=== PATIENT | female | born 1950 | race Caucasian/White ===

== ENCOUNTER 2016-08-04 04:43 | Observation (INO) ==
[2016-08-04] MEDS ORDERED: Ondansetron 4 MG/2 ML VIAL IVP ONE (04:52)
--- NOTE | 2016-08-04 04:53 | Emergency Department Note ---
Disposition Clinical Impression: Joint pain Disposition: Still a Patient Referrals: Fabien Franco MD [Primary Care Provider] - General Adult HPI - General Chief complaint: ED General Medical Stated complaint: Joint pain Time Seen by Provider: 08/04/16 04:50 Nursing Notes Reviewed: Yes Vital Signs Reviewed: Yes - History of Present Illness HPI Narrative: Mrs. Lucas, a 66-year-old female, presents from home by EMS for evaluation of lower extremity joint pain. She has a history of rheumatoid arthritis managed by rheumatology. Last , she had a first and final tx was last - using a combination of rheumatoid and chemotherapeutic medication. After this , her symptoms have been worse than typical and progressive. She awoke this morning and was unable to move her lower extremities secondary to lower extremity joint pain. She typically ambulates without assistance. Prior to arrival, patient attempted self-care with Tylenol and 40 mg prednisone. Her pain is associated with nausea and vomiting; nonbloody, nonbilious. Family at bedside is able to provide additional history. Patient has been nauseaus with vomiting for the past day or so (non bloody, non bilious). She has associated weakness. 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 - Related Data Home Medications Medication Instructions Recorded Confirmed Hydroxychloroquine [Plaquenuil] 200 mg PO DAILY 04/20/16 04/20/16 Magic Mouthwash 5 ml PO TID 04/20/16 04/20/16 Oxygen 1 each .ROUTE AD 04/20/16 04/20/16 Theophylline Anhydrous [Theodur] 300 mg PO BID 04/20/16 04/20/16 Trazodone HCl 1 - 2 tab PO HS PRN 04/20/16 04/20/16 Previous Rx's Medication Instructions Recorded Acyclovir [Zovirax] 800 mg PO 5XD #35 tablet 04/20/16 Magic Mouthwash 5 - 10 ml PO Q4H PRN #200 ml 04/20/16 Allergies Allergy/AdvReac Type Severity Reaction Status Date / Time clarithromycin AdvReac Muscle Pain Verified 02/24/15 11:14 codeine AdvReac Muscle Pain Verified 02/24/15 11:14 Penicillins [PCN] AdvReac Hives Verified 02/24/15 11:14 pregabalin AdvReac Muscle Pain Verified 02/24/15 11:14 Sulfa (Sulfonamide AdvReac Nausea Verified 02/24/15 11:14 Antibiotics) sulfamethoxazole AdvReac Nausea Verified 02/24/15 11:14 [From Bactrim] trimethoprim [From Bactrim] AdvReac Nausea Verified 02/24/15 11:14 All systems ED: reviewed and negative except as stated. Past Medical History - Past Medical History Medical history: Reports: aortic aneurysm, arthritis, COPD, GERD, seizures, thyroid disease, syncope Surgical history: Reports: appendectomy, breast surgery, hysterectomy Psychiatric history: Reports: no psych history - Social History Smoking Status: Never smoker Smokeless Tobacco Status: No Alcohol use: Reports: none Drug use: Reports: none Physical Exam Vital Signs Reviewed General: Patient is alert, oriented, and in mild distress-patient appears to be in pain. HEENT: No facial asymmetry. Head is normocephalic and atraumatic. PERRLA. Oral mucosa moist. Trachea midline. Cardiovascular: Heart regular rate and rhythm without clicks, rubs, gallops, or murmurs. No JVD. PMI nondisplaced. Respiratory: Symmetric chest rise with good respiratory effort. Bilateral breath sounds are clear without wheezing, crackles, or rhonchi. Abdomen: Bowel sounds present normoactive x-4 quadrants. Abdomen is soft, nondistended, and nontender. No organomegaly noted. Musculoskeletal: Bilateral rheumatoid nodules in patient's hands, wrists, shoulders, knees, and feet. Not erythematous or warm. Pain with passive movement of bilateral knees. Neuro: GCS 15. Sensation light touch intact in lower extremities. Psych: Patient's affect is appropriate for situation. Course Course Narrative: 2 presents for pain and nausea control. She recently had chemotherapy with rheumatoid medication after which her rheumatoid joint pain has progressively worsened. She was unable to move her legs while in bed this morning secondary to pain. She denies any other systemic symptoms. No traumas or falls. Notification this time for imaging. Will manage patient symptomatically and reevaluate. Patient is not improved with Zofran. Pain control with Dilaudid given her allergy to codeine. She does have leukocytosis. Urinalysis is pending. Patient signed out to the daytime. Urinalysis pending. Anticipate discharge home with follow to rheumatology for continued chronic pain control. Vital Signs Temperature 98.4 F 08/04/16 04:48 Pulse Rate 91 08/04/16 04:48 Respiratory Rate 18 08/04/16 04:48 Blood Pressure 136/77 08/04/16 04:48 O2 Sat by Pulse Oximetry 100 08/04/16 04:48 Temperature 0 F L 08/04/16 06:21 Pulse Rate 80 08/04/16 06:21 Respiratory Rate 18 08/04/16 06:21 Blood Pressure 134/70 08/04/16 06:21 O2 Sat by Pulse Oximetry 94 08/04/16 06:21 Oxygen Delivery Oxygen Delivery Room Air Medical Decision Making - Medical Records Medical records reviewed: Yes I reviewed the patient's medical records. - Lab Data Lab results reviewed: Yes I reviewed the patient's lab results. Result diagrams: 08/04/16 05:48 08/04/16 05:48 Lab Results 08/04/16 08/04/16 08/04/16 Range/Units 05:48 05:48 05:48 WBC 12.1 H (4.3-11.1) K/mcL RBC 3.91 (3.82-4.97) M/mcL Hgb 11.1 L (11.5-15.4) g/dL Hct 33.9 L (35.3-44.9) % MCV 86.7 (83.0-100.0) fL MCH 28.4 (28.0-33.3) pg MCHC 32.7 (31.6-35.5) g/dL RDW 13.1 (11.5-14.5) % Plt Count 246 (140-400) K/mcL MPV 10.1 (9.4-12.4) fL Seg Neutrophils % 82.0 % Band Neutrophils % 8.0 H (0-4) % Lymphocytes % 4.0 % Monocytes % 6.0 % Neutrophils # 10.9 H (1.6-8.9) K/mcL Lymphocytes # 0.5 L (0.6-4.6) K/mcL Monocytes # 0.7 (0.0-1.3) K/mcL Platelet Estimate Normal (Normal) Sodium 137 (136-145) mEq/L Potassium 3.6 (3.5-4.5) mEq/L Chloride 105 (98-109) mEq/L Carbon Dioxide 25 (19-29) mEq/L BUN 6 L (7-20) mg/dL Creatinine 0.60 (0.57-1.11) mg/dL Est GFR ( Amer) > 60 (> 60) Est GFR (Non-Af Amer) > 60 (> 60) BUN/Creatinine Ratio 10 (6-26) Glucose 123 H (70-99) mg/dL Calculated Osmolality 283 (280-300) Calcium 9.3 (8.6-10.8) mg/dL Creatine Kinase 77 (29-168) Units/L Troponin I 0.01 (0-0.03) ng/mL - Radiology Data Radiology results reviewed: Yes I reviewed the patient's radiology results. Chest X-Ray 08/04/16 05:19 IMPRESSION: 1. No acute cardiopulmonary disease. D/ / Clifford Alvarado MD / Clifford Alvarado MD Interpreting Provider: Clifford Alvarado MD - EKG Data EKG #1 EKG attestation: Yes I reviewed and interpreted this EKG. EKG results narrative: EKG dated 08/04/16 at 05:43 interpreted as sinus rhythm with rate of 78. Normal intervals LA 156, QRS 102, QT/QTC 376/49. Left axis axis. Left anterior fascicular block. Specific ST-T changes. No previous EKG for comparison. Attestation Statement - Attestation Attestation: I, Kvng Fisher, examined this patient and my medical decision-making was reviewed with the CHILD CARE SITTER/PA/Advanced Practice Nurse/Resident Physician. I agree with the documented findings, disposition and treatment plan as described except to the extent set forth below. 66-year-old female presents with multiple concerns or complaints. Family states the patient has been weak, fatigued and vomiting over the past 24 hours. Patient states her main concern was pain to the bilateral knees which started this morning. Patient states she was able to ambulate without difficulty yesterday tear. Today the patient is unable to ambulate secondary to the pain in bilateral knees. Patient reports a subjective fever but has not taken her temperature. On physical exam the patient has tenderness to palpation of the bilateral knees however she has no calf tenderness and she has pulses that are palpable in the bilateral feet. Laboratory evaluation revealed leukocytosis with bandemia however chest x-ray was negative for acute infiltrate. I am currently waiting for urine to evaluate for further sources of infection. It is unlikely that the patient has bilateral septic arthritis however I will add on an ESR and CRP for further evaluation. At this point and pending labs and disposition.
[2016-08-04] MEDS ORDERED: *HR* HYDROmorphone (PF) 1 MG/ML SYRINGE IVP ONE (04:58)
[2016-08-04] MEDS ORDERED: 0.9 % Sodium Chloride 1,000 ML IVC ONE (05:20)
[2016-08-04 05:54] LABS: Hematocrit 33.9 % (35.3-44.9); Hemoglobin 11.1 g/dL (11.5-15.4); Lymphocytes # 0.5 K/mcL (0.6-4.6); Mean Corpuscular HGB Conc 32.7 g/dL (31.6-35.5); Mean Corpuscular Hemoglobin 28.4 pg (28.0-33.3); Mean Corpuscular Volume 86.7 fL (83.0-100.0); Mean Platelet Volume 10.1 fL (9.4-12.4); Platelet Count 246 K/mcL (140-400); Red Blood Count 3.91 M/mcL (3.82-4.97); Red Cell Distribution Width 13.1 % (11.5-14.5)
[2016-08-04 06:08] LABS: BUN/Creatinine Ratio 10 (6-26); Blood Urea Nitrogen 6 mg/dL (7-20); Calcium 9.3 mg/dL (8.6-10.8); Carbon Dioxide 25 mEq/L (19-29); Chloride 105 mEq/L (98-109); Glucose 123 mg/dL (70-99); Osmolality,Calculated 283 (280-300); Potassium 3.6 mEq/L (3.5-4.5); Sodium 137 mEq/L (136-145); eGFR For African Americans > 60 (> 60); eGFR For Non-African Americans > 60 (> 60)
[2016-08-04 06:11] LABS: Monocytes # 0.7 K/mcL (0.0-1.3); Neutrophils # 10.9 K/mcL (1.6-8.9); Platelet Estimate Normal (Normal)
[2016-08-04] MEDS ORDERED: *HR* HYDROmorphone 2 MG/ML SYRINGE IVP ONE (06:12)
[2016-08-04 06:29] LABS: Creatine Kinase 77 Units/L (29-168)
[2016-08-04 07:10] LABS: Bilirubin,Urine Negative (Negative); Blood,Urine Negative (Negative); Clarity,Urine Clear (Clear); Color,Urine Yellow (Yellow); Glucose,Urine (UA) Normal (Normal); Ketones,Urine Negative (Negative); Leukocyte Esterase,Urine Trace (Negative); Nitrite,Urine Negative (Negative); PH,Urine 7.5 pH Units (5.0-8.0); Protein,Urine Negative (Neg-Trace); Specific Gravity,Urine 1.013 (1.010-1.025); Urobilinogen,Urine Normal (Normal)
[2016-08-04 07:12] LABS: Bacteria,Urine None Seen per hpf (None-Few); Hyaline Casts,Urine None Seen per lpf (None-Few); RBC,Urine 0-3 per hpf (0-3); Squamous Epithelial Cell,Urine Moderate per lpf (None-Few); WBC,Urine 0-3 per hpf (0-3)
--- NOTE | 2016-08-04 08:16 | Emergency Department Note ---
Disposition Clinical Impression: Gait instability, Rheumatoid arthritis flare Joint pain Qualifiers: Joint pain location: knee Laterality: bilateral Qualified Code(s): M25.561 - Pain in right knee Disposition: Admitted As Inpatient Condition: Fair Referrals: Fabien Franco MD [Primary Care Provider] - Forms: Work/School Release, ED Satisfaction Letter Time of Disposition: 08:15 General Adult HPI - General Chief complaint: ED General Medical Stated complaint: Joint pain Time Seen by Provider: 08/04/16 04:50 Source: EMS Limitations: physical limitation, age - History of Present Illness Pain Scale: 10 - Related Data Home Medications Medication Instructions Recorded Confirmed Hydroxychloroquine [Plaquenuil] 300 mg PO DAILY 04/20/16 08/04/16 Oxygen 2 l NS HS 04/20/16 08/04/16 Theophylline Anhydrous [Theodur] 300 mg PO BID 04/20/16 08/04/16 Albuterol Neb [Proventil Neb] 2.5 mg IH TID PRN 08/04/16 08/04/16 Albuterol Sulfate [Ventolin Hfa] 2 puff IH Q4H PRN 08/04/16 08/04/16 Aspirin [Lo-Dose Aspirin EC] 81 mg PO DAILY 08/04/16 08/04/16 Cholecalciferol (D-3) [Vitamin D] 2,000 unit PO DAILY 08/04/16 08/04/16 Diclofenac Sodium [Voltaren] 1 appl TP QID PRN 08/04/16 08/04/16 Ergocalciferol (VITAMIN D2) 50,000 unit PO QWEEK 08/04/16 08/04/16 [Vitamin D2] Fluticasone Propionate Nasal 1 spray NS DAILY 08/04/16 08/04/16 [Flonase] Gabapentin [Neurontin] 800 mg PO TID 08/04/16 08/04/16 Ibandronate Sodium [Boniva] 150 mg PO QMONTH 08/04/16 08/04/16 InFLIXimab [Remicade] 100 mg IV Q8W 08/04/16 08/04/16 LevETIRAcetam [Keppra] 1,000 mg PO BID 08/04/16 08/04/16 Levothyroxine [Synthroid] 75 mcg PO 0630 08/04/16 08/04/16 Mometasone/Formoterol [Dulera 100 2 puff IH BID 08/04/16 08/04/16 Mcg/5 Mcg Inhaler] Pantoprazole Sodium [Protonix] 40 mg PO DAILY 08/04/16 08/04/16 Pravastatin Sodium 10 mg PO DAILY 08/04/16 08/04/16 PredniSONE [Deltasone] 20 mg PO AD 08/04/16 08/04/16 Primidone [Mysoline] 250 mg PO Q8HR 08/04/16 08/04/16 Sertraline [Zoloft] 100 mg PO DAILY 08/04/16 08/04/16 Tiotropium [Spiriva] 1 cap IH DAILY 08/04/16 08/04/16 Zafirlukast [Accolate] 20 mg PO DAILY 08/04/16 08/04/16 Allergies Allergy/AdvReac Type Severity Reaction Status Date / Time clarithromycin AdvReac Muscle Pain Verified 02/24/15 11:14 codeine AdvReac Muscle Pain Verified 02/24/15 11:14 Penicillins [PCN] AdvReac Hives Verified 02/24/15 11:14 pregabalin AdvReac Muscle Pain Verified 02/24/15 11:14 Sulfa (Sulfonamide AdvReac Nausea Verified 02/24/15 11:14 Antibiotics) sulfamethoxazole AdvReac Nausea Verified 02/24/15 11:14 [From Bactrim] trimethoprim [From Bactrim] AdvReac Nausea Verified 02/24/15 11:14 Past Medical History - Past Medical History Medical history: Reports: aortic aneurysm, arthritis, COPD, GERD, seizures, thyroid disease, syncope Surgical history: Reports: appendectomy, breast surgery, hysterectomy Psychiatric history: Reports: no psych history - Social History Smoking Status: Never smoker Smokeless Tobacco Status: No Alcohol use: Reports: none Drug use: Reports: none Physical Exam - General Limitations: physical limitation, age General appearance: alert, in no apparent distress Course Course Narrative: There was signed out from Dr. Maya and Dr. Fisher, please see their documentation for history physical review of systems and plan on this patient - Reevaluation(s) Reevaluation #1: 66-year-old female with gait instability and bilateral knee pain, suspect rheumatoid flare however does have a bandemia, I discussed with the hospitalist we will admit the patient due to difficulty walking, gait abnormality knee pain , [facility] accepting. Time: 08:04 Vital Signs Temperature 98.4 F 08/04/16 04:48 Pulse Rate 91 08/04/16 04:48 Respiratory Rate 18 08/04/16 04:48 Blood Pressure 136/77 08/04/16 04:48 O2 Sat by Pulse Oximetry 100 08/04/16 04:48 Temperature 0 F L 08/04/16 06:21 Pulse Rate 80 08/04/16 06:21 Respiratory Rate 18 08/04/16 06:21 Blood Pressure 134/70 08/04/16 06:21 O2 Sat by Pulse Oximetry 94 08/04/16 06:21 Oxygen Delivery Oxygen Delivery Room Air Medical Decision Making - Medical Records Medical records reviewed: Yes I reviewed the patient's medical records. - Lab Data Lab results reviewed: Yes I reviewed the patient's lab results. Result diagrams: 08/04/16 05:48 08/04/16 05:48 Lab Results 08/04/16 08/04/16 08/04/16 Range/Units 05:48 05:48 05:48 WBC 12.1 H (4.3-11.1) K/mcL RBC 3.91 (3.82-4.97) M/mcL Hgb 11.1 L (11.5-15.4) g/dL Hct 33.9 L (35.3-44.9) % MCV 86.7 (83.0-100.0) fL MCH 28.4 (28.0-33.3) pg MCHC 32.7 (31.6-35.5) g/dL RDW 13.1 (11.5-14.5) % Plt Count 246 (140-400) K/mcL MPV 10.1 (9.4-12.4) fL Seg Neutrophils % 82.0 % Band Neutrophils % 8.0 H (0-4) % Lymphocytes % 4.0 % Monocytes % 6.0 % Neutrophils # 10.9 H (1.6-8.9) K/mcL Lymphocytes # 0.5 L (0.6-4.6) K/mcL Monocytes # 0.7 (0.0-1.3) K/mcL Platelet Estimate Normal (Normal) Sodium 137 (136-145) mEq/L Potassium 3.6 (3.5-4.5) mEq/L Chloride 105 (98-109) mEq/L Carbon Dioxide 25 (19-29) mEq/L BUN 6 L (7-20) mg/dL Creatinine 0.60 (0.57-1.11) mg/dL Est GFR ( Amer) > 60 (> 60) Est GFR (Non-Af Amer) > 60 (> 60) BUN/Creatinine Ratio 10 (6-26) Glucose 123 H (70-99) mg/dL Calculated Osmolality 283 (280-300) Calcium 9.3 (8.6-10.8) mg/dL Creatine Kinase 77 (29-168) Units/L Troponin I 0.01 (0-0.03) ng/mL Urine Color (Yellow) Urine Clarity (Clear) Urine pH (5.0-8.0) pH Units Ur Specific [place] (1.010-1.025) Urine Protein (Neg-Trace) mg/dL Urine Glucose (UA) (Normal) mg/dL Urine Ketones (Negative) mg/dL Urine Blood (Negative) Urine Nitrite (Negative) Urine Bilirubin (Negative) Urine Urobilinogen (Normal) mg/dL Ur Leukocyte Esterase (Negative) Urine Microscopic RBC (0-3) per hpf Urine Microscopic WBC (0-3) per hpf Ur Squamous Epith Cells (None-Few) per lpf Urine Bacteria (None-Few) per hpf Hyaline Casts (None-Few) per lpf Ur Culture Indicated? (NO) 08/04/16 Range/Units 07:00 WBC (4.3-11.1) K/mcL RBC (3.82-4.97) M/mcL Hgb (11.5-15.4) g/dL Hct (35.3-44.9) % MCV (83.0-100.0) fL MCH (28.0-33.3) pg MCHC (31.6-35.5) g/dL RDW (11.5-14.5) % Plt Count (140-400) K/mcL MPV (9.4-12.4) fL Seg Neutrophils % % Band Neutrophils % (0-4) % Lymphocytes % % Monocytes % % Neutrophils # (1.6-8.9) K/mcL Lymphocytes # (0.6-4.6) K/mcL Monocytes # (0.0-1.3) K/mcL Platelet Estimate (Normal) Sodium (136-145) mEq/L Potassium (3.5-4.5) mEq/L Chloride (98-109) mEq/L Carbon Dioxide (19-29) mEq/L BUN (7-20) mg/dL Creatinine (0.57-1.11) mg/dL Est GFR ( Amer) (> 60) Est GFR (Non-Af Amer) (> 60) BUN/Creatinine Ratio (6-26) Glucose (70-99) mg/dL Calculated Osmolality (280-300) Calcium (8.6-10.8) mg/dL Creatine Kinase (29-168) Units/L Troponin I (0-0.03) ng/mL Urine Color Yellow (Yellow) Urine Clarity Clear (Clear) Urine pH 7.5 (5.0-8.0) pH Units Ur Specific [place] 1.013 (1.010-1.025) Urine Protein Negative (Neg-Trace) mg/dL Urine Glucose (UA) Normal (Normal) mg/dL Urine Ketones Negative (Negative) mg/dL Urine Blood Negative (Negative) Urine Nitrite Negative (Negative) Urine Bilirubin Negative (Negative) Urine Urobilinogen Normal (Normal) mg/dL Ur Leukocyte Esterase Trace H (Negative) Urine Microscopic RBC 0-3 (0-3) per hpf Urine Microscopic WBC 0-3 (0-3) per hpf Ur Squamous Epith Cells Moderate H (None-Few) per lpf Urine Bacteria None Seen (None-Few) per hpf Hyaline Casts None Seen (None-Few) per lpf Ur Culture Indicated? YES A (NO) - Radiology Data Radiology results reviewed: Yes I reviewed the patient's radiology results. Chest X-Ray 08/04/16 05:19 IMPRESSION: 1. No acute cardiopulmonary disease. D/ / Clifford Alvarado MD / Clifford Alvarado MD Interpreting Provider: Clifford Alvarado MD Knee X-Ray 08/04/16 07:38 IMPRESSION: 1. No acute findings in the knees. 2. Predominately mild tricompartmental osteoarthritic changes with moderate involvement of the left lateral compartment. 3. Small bilateral suprapatellar effusions, larger on the left. 4. Bony demineralization. 5. Minimal to mild diffuse subcutaneous edema. D/ / Shahzad Ramsey MD / Shahzad Ramsey MD Interpreting Provider: Shahzad Ramsey MD Attestation Statement - Attestation Attestation: I examined this patient and my medical decision-making was reviewed with the MANAGER CAR/PA/Advanced Practice Nurse/Resident Physician. I agree with the documented findings, disposition and treatment plan as described except to the extent set forth below. Patient signed out pending urinalysis and disposition. Urinalysis does not show any signs of infection. Patient saw having a significant amount of pain following multiple doses of IV pain medication. Unclear the source of her bandemia. Blood cultures were drawn and sent. Admitted to medicine.
[2016-08-04] MEDS ORDERED: Naloxone 0.4 MG/ML INJ IVP PRN (09:18)
[2016-08-04] MEDS ORDERED: *HR* Morphine 2 MG/ML SYRINGE IVP PRN (09:18)
--- NOTE | 2016-08-04 09:18 | Internal Med History&Physical ---
Date of Encounter: 08/04/16 Time of Encounter: 09:17 Assessment and Plan (1) Rheumatoid arthritis flare Current visit: Yes Status: Acute On wrists, knees Will start prednisone 60mg daily and PPI [facility]-Dr Connor consulted on the phone Continue plaquenil ESR 22, CRP elevated Gentle hydration PT/OT evaluation (2) UTI (urinary tract infection) Current visit: Yes Status: Acute Symptomatic, with LE on UA Patient complained of dysuria, frequency Allergic to Penicillin, Started on Levaquin, follow urine cultures, de-escalate prn Qualifiers: Urinary tract infection type: acute cystitis Hematuria presence: without hematuria Qualified Code(s): N30.00 - Acute cystitis without hematuria (3) Seizures Current visit: Yes Status: Chronic On Keppra at home, resume same (4) Sjogrens syndrome Current visit: Yes Status: Chronic Resume home meds Qualifiers: Sjogren's organ involvement: unspecified organ involvement Qualified Code(s ): M35.00 - Sicca syndrome, unspecified (5) COPD (chronic obstructive pulmonary disease) Current visit: Yes Status: Chronic Not in exacerbation at this time Resume home Spiriva, Albuterol, Advair Qualifiers: COPD type: unspecified COPD Qualified Code(s): J44.9 - Chronic obstructive pulmonary disease, unspecified (6) Hypothyroidism Current visit: Yes Status: Chronic Resume synthroid, check TSH Qualifiers: Hypothyroidism type: unspecified Qualified Code(s): E03.9 - Hypothyroidism , unspecified (7) Leukocytosis Current visit: Yes Status: Acute Possibly from steroids, also may be from UTI Continue to monitor Qualifiers: Leukocytosis type: unspecified Qualified Code(s): D72.829 - Elevated white blood cell count, unspecified Internal Medicine - H&P: HPI Chief complaint: I can't walk Admitted From: Home Plans for Post Hospital Care: Home History of present illness: Ms. Lucas is a 66 year old female with COPD on intermittent/nocturnal home O2, RA , Sjogren's syndorme, Seizures, Neuropathy, hypothyroidism She was recently started on infliximab infusions, first does 07/28/16, she reports generalized body pains and fatigue since the infusion, no fever or chills, no rash However, yesterday she developed intense pain in her knees and she could not ambulate. She presented to the ER with complains of same. She denies history of trauma to any of the joints, denies fever or chills, but complains of warmt, redness, pain as well as swelling of her right and left wrists and shoulders. She denies sick contacts, recent travels No chest or cardiac symptoms No GI symptoms She also endorsed dysuria and frequency, no hematuria She also has a history of seizures, no recent seizures In the ER, she was given dilaudid with some relief of her pain, work up revealed UA with Squamous cells, and LE, no nitrites, CXR unremarkable, CBC with leukocytosis with left shift, Hb and PLT WNL. Chem unremarkable. ESR elevated at 22, CRP elevated at 30, KNee Xray shows bone demineralization, as well as bilateral suprapatellar effusion, L>R, subcutaneous edema Past Med Surg Social Fam HX - Past Medical History Medical history: aortic aneurysm, arthritis, COPD, GERD, seizures, thyroid disease, syncope Psychiatric history: no psych history - Past Surgical History Surgical History: appendectomy, breast surgery, hysterectomy - Social History Smoking Status: Never smoker Smokeless Tobacco Status: No Alcohol use: none Drug use: none Internal Medicine - H&P: Meds Hydroxychloroquine [Plaquenuil] 300 mg PO DAILY 04/20/16 [History] Oxygen 2 l NS HS 04/20/16 [History] Theophylline Anhydrous [Theodur] 300 mg PO BID 04/20/16 [History] Albuterol Neb [Proventil Neb] 2.5 mg IH TID PRN 08/04/16 [History] Albuterol Sulfate [Ventolin Hfa] 2 puff IH Q4H PRN 08/04/16 [History] Aspirin [Lo-Dose Aspirin EC] 81 mg PO DAILY 08/04/16 [History] Cholecalciferol (D-3) [Vitamin D] 2,000 unit PO DAILY 08/04/16 [History] Diclofenac Sodium [Voltaren] 1 appl TP QID PRN 08/04/16 [History] Ergocalciferol (VITAMIN D2) [Vitamin D2] 50,000 unit PO QWEEK 08/04/16 [History] Fluticasone Propionate Nasal [Flonase] 1 spray NS DAILY 08/04/16 [History] Gabapentin [Neurontin] 800 mg PO TID 08/04/16 [History] Ibandronate Sodium [Boniva] 150 mg PO QMONTH 08/04/16 [History] InFLIXimab [Remicade] 100 mg IV Q8W 08/04/16 [History] LevETIRAcetam [Keppra] 1,000 mg PO BID 08/04/16 [History] Levothyroxine [Synthroid] 75 mcg PO 0630 08/04/16 [History] Mometasone/Formoterol [Dulera 100 Mcg/5 Mcg Inhaler] 2 puff IH BID 08/04/16 [ History] Pantoprazole Sodium [Protonix] 40 mg PO DAILY 08/04/16 [History] Pravastatin Sodium 10 mg PO DAILY 08/04/16 [History] PredniSONE [Deltasone] 20 mg PO AD 08/04/16 [History] Primidone [Mysoline] 250 mg PO Q8HR 08/04/16 [History] Sertraline [Zoloft] 100 mg PO DAILY 08/04/16 [History] Tiotropium [Spiriva] 1 cap IH DAILY 08/04/16 [History] Zafirlukast [Accolate] 20 mg PO DAILY 08/04/16 [History] Allergies clarithromycin Adverse Reaction (Verified 02/24/15 11:14) Muscle Pain codeine Adverse Reaction (Verified 02/24/15 11:14) Muscle Pain Penicillins [PCN] Adverse Reaction (Verified 02/24/15 11:14) Hives pregabalin Adverse Reaction (Verified 02/24/15 11:14) Muscle Pain Sulfa (Sulfonamide Antibiotics) Adverse Reaction (Verified 02/24/15 11:14) Nausea sulfamethoxazole [From Bactrim] Adverse Reaction (Verified 02/24/15 11:14) Nausea trimethoprim [From Bactrim] Adverse Reaction (Verified 02/24/15 11:14) Nausea All Systems PM: A 10-system review of systems was performed and is negative for pertinent findings except as documented above in the HPI. - Constitutional Constitutional: chills - EENT Eyes: no change in vision, no discharge, no pain, no photophobia - Cardiovascular Cardiovascular ROS IM: no chest pain, no diaphoresis, no dyspnea, no lightheadedness, no palpitations, no syncope - Respiratory Respiratory: no cough, no dyspnea, no wheezing, no excessive phlegm production - Gastrointestinal Gastrointestinal: no abdominal pain, no diarrhea, no hematemesis, no hematochezia, no melena, no nausea, no vomiting - Genitourinary Genitourinary: dysuria, urinary frequency, no difficulty voiding - Musculoskeletal Musculoskeletal ROS IM: as per HPI - Integumentary Integumentary IM: no rash - Neurological Neurological ROS: no confusion, no convulsions, no focal weakness, no numbness, no tingling, no tremor(s) - Hematologic/Lymphatic Hematologic/Lymphatic: no easy bruising - Constitutional Vitals: Temp Pulse Resp BP Pulse Ox 0 F L 80 18 128/71 94 08/04/16 08:35 08/04/16 06:21 08/04/16 08:35 08/04/16 08:35 08/04/16 06:21 General appearance: Present: mild distress, A&O X 3, pleasant - Head Head exam: Present: atraumatic, normocephalic - Eye Eye exam: Present: PERRL, conjuntiva pink, sclera anicteric Pupils: Present: PERRL - ENT ENT exam: Present: mucous membranes dry - Neck Neck exam general surgery: Present: normal inspection - Respiratory Respiratory exam: Present: CTAB. Absent: chest wall tenderness, rales, rhonchi , wheezes - Cardiovascular Cardiovascular exam: Present: RRR, +S1, +S2. Absent: JVD, systolic murmur - GI/Abdominal GI/Abdominal exam: Present: normal bowel sounds, soft, no peritoneal signs. Absent: tenderness - Extremities Exam Extremities exam: Present: joint swelling, tenderness, warm, radial pulses palpable and symetrical. Absent: cyanotic, full ROM Additional comments: Bilateral wrists swelling and redness, differential warmth, synovitis of both wrists [place] neck deformities, both thumbs Bilateral knees diffuse warmth and redness, bllotable effusion over the patella , ROM not assessed due to intense pain No pedal edema Extremities well perfused - Neurological Exam Neurological exam: Present: alert, CN II-XII intact, oriented X3, no focal deficits. Absent: pronater drift, facial droop, speech deficit - Skin Skin exam: Present: dry Internal Med - H&P Results - Labs CBC & Chem 7: 08/04/16 05:48 08/04/16 05:48
[2016-08-04] MEDS ORDERED: Albuterol 2.5 MG/3 ML NEBULIZER IH PRN (09:20)
[2016-08-04] MEDS ORDERED: predniSONE 20 MG TABLET PO ONE (09:20)
[2016-08-04 09:45] LABS: C-Reactive Protein 30 mg/L (Less than 5)
--- NOTE | 2016-08-04 10:05 | Rheumatology Consult Note ---
<Jossy Xie - Last Filed: 08/04/16 13:31> Date of Encounter: 08/04/16 Time of Encounter: 09:15 Rheumatology Assess and Plan (1) Polyarthritis Current Visit: Yes Status: Acute - Affecting bilateral wrist and knee joints. - Likely related to recent Remicade administration. - Given affecting multiple joints at same time, doubt infectious arthritis but cannot be completely ruled out. - Left knee arthrocentesis was done today with about 20 mL of cloudy synovial fluid obtained and sent for further studies including cell count, crystal study , gram stain and culture. - Given the acute onset, will also check Parvovirus IgM. - Continue steroid and antibiotic at this time and further de-escalate based on result of synovial fluid studies. (2) Rheumatoid arthritis Current Visit: Yes Status: Chronic - History of rheumatoid arthritis on Plaquenil and recently started on Remicade. - Continue Plaquenil and prednisone. - Will avoid Remicade in the future. Qualifiers: Rheumatoid arthritis location: unspecified site Rheumatoid factor presence : with rheumatoid factor Qualified Code(s): M05.9 - Rheumatoid arthritis with rheumatoid factor, unspecified (3) Sjogrens syndrome Current Visit: Yes Status: Chronic - Patient can use artificial tear or Biotene for dry eye or dry mouth. Qualifiers: Sjogren's organ involvement: unspecified organ involvement Qualified Code(s ): M35.00 - Sicca syndrome, unspecified Rheumatology HPI Consult date: 08/04/16 Requesting physician: Curt Maier Consult reason: Concern of rheumatoid arthritis flare Chief complaint: Worsening bilateral wrist and knee joint swelling and pain History of present illness: Ms. Lucas is a 66 year old female with PMH of rheumatoid arthritis on Plaquenil and Remicade (one dose on 07/27/16), Sjogrens syndrome, osteoarthritis, osteoporosis, hypothyroidism, emphysema. Patient presented with complaint of worsening bilateral wrist and knee joint swelling and pain resulting in difficulty ambulation. Patient was noted to have leukocytosis (12.1) with bandemia (8%) in ED. Patient was admitted on 08/04/16 for possible rheumatoid arthritis flare-up and rheumatology is consulted regarding further evaluation and management. Patient was seen and examined this morning. Patient reports symptoms started after Remicade infusion last week but got significantly worsen last night. It affect bilateral thumb, wrist and knee with swelling, pain and warm to touch. She also developed some skin itchiness and scratch. Patient saw Dr. Berg in rheumatology clinic on 08/02 and was started on prednisone, which patient did take but feels not helping. Patient also reports having subjective fever, chills and one episode of vomiting last night. Patient reports having some genitourinary irritation but thinks it's from wiping tissue she used as she states no pain on urination. Patient has baseline shortness of breath from her COPD and baseline bilateral extremity numbness/tingling from peripheral neuropathy but reports no recent change. Patient denies rash, vision change, eye redness/inflammation, sore throat, oral ulcer/sore, focal weakness, productive cough, chest pain, abdominal pain, diarrhea, hematochezia, melena, hematuria, rash, easily bleeding/bruise. Patient has history of allergy to multiple medications. Patient denies known history of gout. Patient denies recent trauma or injury. Past Med Surg Social Fam HX - Past Medical History Medical history: aortic aneurysm, arthritis (Rheumatoid arthritis, osteoarthritis), COPD, GERD, seizures, thyroid disease, syncope, other (Sjogren) Psychiatric history: no psych history - Past Surgical History Surgical History: appendectomy, breast surgery, hysterectomy - Social History Smoking Status: Never smoker Smokeless Tobacco Status: No Alcohol use: none Drug use: none Medications and Allergies Hydroxychloroquine [Plaquenuil] 300 mg PO DAILY 04/20/16 [History] Oxygen 2 l NS HS 04/20/16 [History] Theophylline Anhydrous [Theodur] 300 mg PO BID 04/20/16 [History] Albuterol Neb [Proventil Neb] 2.5 mg IH TID PRN 08/04/16 [History] Albuterol Sulfate [Ventolin Hfa] 2 puff IH Q4H PRN 08/04/16 [History] Aspirin [Lo-Dose Aspirin EC] 81 mg PO DAILY 08/04/16 [History] Cholecalciferol (D-3) [Vitamin D] 2,000 unit PO DAILY 08/04/16 [History] Diclofenac Sodium [Voltaren] 1 appl TP QID PRN 08/04/16 [History] Ergocalciferol (VITAMIN D2) [Vitamin D2] 50,000 unit PO QWEEK 08/04/16 [History] Fluticasone Propionate Nasal [Flonase] 1 spray NS DAILY 08/04/16 [History] Gabapentin [Neurontin] 800 mg PO TID 08/04/16 [History] Ibandronate Sodium [Boniva] 150 mg PO QMONTH 08/04/16 [History] InFLIXimab [Remicade] 100 mg IV Q8W 08/04/16 [History] LevETIRAcetam [Keppra] 1,000 mg PO BID 08/04/16 [History] Levothyroxine [Synthroid] 75 mcg PO 0630 08/04/16 [History] Mometasone/Formoterol [Dulera 100 Mcg/5 Mcg Inhaler] 2 puff IH BID 08/04/16 [ History] Pantoprazole Sodium [Protonix] 40 mg PO DAILY 08/04/16 [History] Pravastatin Sodium 10 mg PO DAILY 08/04/16 [History] PredniSONE [Deltasone] 20 mg PO AD 08/04/16 [History] Primidone [Mysoline] 250 mg PO Q8HR 08/04/16 [History] Sertraline [Zoloft] 100 mg PO DAILY 08/04/16 [History] Tiotropium [Spiriva] 1 cap IH DAILY 08/04/16 [History] Zafirlukast [Accolate] 20 mg PO DAILY 08/04/16 [History] Allergies clarithromycin Adverse Reaction (Verified 02/24/15 11:14) Muscle Pain codeine Adverse Reaction (Verified 02/24/15 11:14) Muscle Pain Penicillins [PCN] Adverse Reaction (Verified 02/24/15 11:14) Hives pregabalin Adverse Reaction (Verified 02/24/15 11:14) Muscle Pain Sulfa (Sulfonamide Antibiotics) Adverse Reaction (Verified 02/24/15 11:14) Nausea sulfamethoxazole [From Bactrim] Adverse Reaction (Verified 02/24/15 11:14) Nausea trimethoprim [From Bactrim] Adverse Reaction (Verified 02/24/15 11:14) Nausea All Systems Review: A 10-system review of systems was performed and is negative for pertinent findings except as documented above in the HPI. Review of Systems: Patient denies productive cough, chest pain, abdominal pain, rash, diarrhea, hematochezia, melena, hematuria, rash, easily bleeding/bruise. Rheumatology Exam Vital Signs, Last 4 Hours Temp Pulse Resp BP Pulse Ox 08/04/16 09:49 91 19 143/96 95 08/04/16 08:35 0 F L 18 128/71 Exam: Gen: A&Ox3, cooperative, mild distress from joint pain. HEENT: AT/NC, EOMI, PERRL, no eye redness noted, nare patent, oral mucosa dry, neck supple, no significant cervical lymphoadenopathy noted. CV: RRR, no murmurs appreciated. Lungs: CTAB, no wheezes, rhonchi or rales. Abd: soft, non-tender, positive bowel sounds. Neuro: CN II-XII grossly intact, strength 5/5 symmetrical, no focal deficit noted. Skin: Some scratch kaminksi noted on right knee and right whitaker. Extremities: Bilateral wrist: swelling, erythema, warm to touch. Bilateral knee: swelling, erythema, warm to touch. Palpable suprapatellar effusion. Per Dr. Berg, those joints are significantly worsen compared to patient's visit with him on 08/02. Rheumatology Results 08/04/16 05:48 08/04/16 05:48 All other labs normal. Consult Discharge Plan - Plan Referrals: Fabien Franco MD [Primary Care Provider] - <Neymar Berg W - Last Filed: 08/04/16 17:04> Date of Encounter: 08/04/16 Rheumatology HPI History of present illness: Ms. Lucas is a 66 year old female All Systems Review: A 10-system review of systems was performed and is negative for pertinent findings except as documented above in the HPI. Rheumatology Exam Vital Signs, Last 4 Hours Temp Pulse Resp BP Pulse Ox 08/04/16 15:49 97.9 F 90 18 141/72 96 Rheumatology Results 08/04/16 05:48 08/04/16 05:48 All other labs normal. - Attending Attestation I examined this patient and my medical decision making was reviewed with the resident physician. I agree with the documented findings, disposition and treatment as described with these exceptions. Jazlyn Lucas is a 66-year-old female with a past medical history of Sjogren's syndrome, rheumatoid arthritis, hypothyroidism, hyperlipidemia, osteoporosis, COPD who presents to the hospital with an acute onset of polyarthritis. Remicade given last week; has had progressively worsening arthralgias increasing to arthritis. Leukocytosis, neutrophilia noted. CMP and UA reviewed. Xrays reviewed Exam consistent for diffuse synovitis and joint effusion. Arthrocentesis for cultures, crytals. Given acute nature after Remicade, will need to consider drug/TNF induced lupus ; add ISABELA, dsDNA, complements. Less likely serum sickness given lack of rash/ fevers. less likely reactive arthritis and I would not suspect a sudden rheumatoid flare like this. Check Parvo IgM. Await cultures/synovital fluid analysis. Agree with prednisone 60 mg; would discharge on 40 mg if expectantly improving and I will set up for follow-up office visit. I will be gone till Monday. I did call Dr. Maier to speak with her regarding this case.
[2016-08-04] MEDS: Aspirin Enteric Coated 81 MG Tablet PO SCH (10:38)
[2016-08-04] MEDS: Cholecalciferol (D-3) 1,000 UNIT TABLET PO SCH (10:39)
[2016-08-04] MEDS: Levofloxacin 750 MG/150 ML 750 MG/150 ML BAG IVPB SCH (10:39)
[2016-08-04] MEDS: levETIRAcetam 250 MG TABLET PO SCH ×2 (10:39→20:30)
[2016-08-04] MEDS: 0.9 % Sodium Chloride 1,000 ML IVC SCH (10:40)
--- NOTE | 2016-08-04 12:17 | Procedure Note ---
<Jossy Xie - Last Filed: 08/04/16 14:22> Date of procedure: 08/04/16 Pre-op diagnosis: Polyarthritis Post-op diagnosis: same Procedure: Left knee arthrocentesis Informed consent was obtained and patient signed the consent form. The left knee was prepped with chlorhexidine. Needle was inserted with "no touch" technique. About 20 mL of cloudy synovial fluid was obtained and sent to lab for further studies including cell count, crystal study, gram stain and culture. Patient tolerates the procedure well. This procedure was done by resident physician Jossy Xie under direct supervision of rheumatology attending Dr. Berg. Estimated blood loss (cc): 1 Condition: stable <Neymar Berg - Last Filed: 08/04/16 16:54> Procedure: I examined this patient and my medical decision making was reviewed with the resident physician. I agree with the documented findings, disposition and treatment as described with these exceptions. I was present for the entirety of this procedure. There were no complications during or directly after the procedure.
[2016-08-04] MEDS: *HR* HYDROcodone/Acet 5/325 mg TABLET PO PRN (12:26)
[2016-08-04] MEDS: Ondansetron 4 MG/2 ML VIAL IVP PRN (12:47)
--- NOTE | 2016-08-04 14:03 | Electrocardiograph Report ---
[place] [facility] Test Date: 2016-08-04 Pat Name: Jazlyn Lucas Department: 103 Room: 2NE23 Gender: F Opener Tender: [facility] : 1950 Requested By: Nelson Maya Order Number: [id number] Reading MD: Erich Mcmillan MD Measurements Intervals [place] Rate: 78 P: 56 [place]: 156 QRS: -23 QRSD: 102 T: 29 QT: 376 QTc: 409 Interpretive Statements SINUS RHYTHM BORDERLINE LEFT AXIS DEVIATION NONSPECIFIC T-WAVE ABNORMALITY Electronically Signed On 08-04-2016 14:01:55 EDT by Erich Mcmillan MD
[2016-08-04] MEDS: Acetaminophen 325 MG TABLET PO PRN (14:33)
[2016-08-04 14:41] LABS: Appearance of Body Fluid Cloudy (Clear); Volume of Body Fluid 18 mL
[2016-08-04] MEDS: Gabapentin 400 MG CAPSULE PO SCH ×2 (15:29→20:30)
[2016-08-04 16:16] LABS: Source of Body Fluid Left knee joint aspi
[2016-08-04] MEDS: Ipratropium/Albuterol Neb 3 ML IH SCH (19:43)
[2016-08-05] MEDS: 0.9 % Sodium Chloride 1,000 ML IVC SCH (00:13)
[2016-08-05] MEDS: *HR* HYDROcodone/Acet 5/325 mg TABLET PO PRN ×3 (00:17→22:11)
[2016-08-05 04:15] LABS: Basophils % 0.1 %; Hematocrit 30.1 % (35.3-44.9); Immature Granulocytes % 0.6 % (0-4); Lymphocytes % 6.5 %; Mean Corpuscular HGB Conc 33.6 g/dL (31.6-35.5); Mean Corpuscular Hemoglobin 29.3 pg (28.0-33.3); Mean Corpuscular Volume 87.2 fL (83.0-100.0); Mean Platelet Volume 10.5 fL (9.4-12.4); Monocytes % 10.6 %; Platelet Count 213 K/mcL (140-400); Red Blood Count 3.45 M/mcL (3.82-4.97); Red Cell Distribution Width 13.6 % (11.5-14.5); Segmented Neutrophils % 82.2 %
[2016-08-05 04:25] LABS: Hemoglobin 10.1 g/dL (11.5-15.4); Monocytes # 1.6 K/mcL (0.0-1.3)
[2016-08-05 04:35] LABS: BUN/Creatinine Ratio 17 (6-26); Blood Urea Nitrogen 9 mg/dL (7-20); Carbon Dioxide 24 mEq/L (19-29); Chloride 103 mEq/L (98-109); Glucose 114 mg/dL (70-99); Osmolality,Calculated 276 (280-300); Potassium 3.1 mEq/L (3.5-4.5); Sodium 133 mEq/L (136-145); eGFR For African Americans > 60 (> 60); eGFR For Non-African Americans > 60 (> 60)
[2016-08-05 04:41] LABS: Platelet Estimate Normal (Normal)
[2016-08-05 04:42] LABS: Reactive Lymphocytes Present (Not Present)
[2016-08-05 04:51] LABS: Thyroid Stimulating Hormone 0.477 mcIU/mL (0.350-4.840)
[2016-08-05] MEDS: Tiotropium 18 MCG inhalation IH SCH (08:29)
[2016-08-05] MEDS: Cholecalciferol (D-3) 1,000 UNIT TABLET PO SCH (08:33)
[2016-08-05] MEDS: predniSONE 20 MG TABLET PO SCH (08:34)
[2016-08-05] MEDS: levETIRAcetam 250 MG TABLET PO SCH ×2 (08:34→22:11)
[2016-08-05] MEDS: Gabapentin 400 MG CAPSULE PO SCH ×3 (08:35→22:12)
[2016-08-05] MEDS: Aspirin Enteric Coated 81 MG Tablet PO SCH (08:35)
[2016-08-05] MEDS: Levofloxacin 750 MG/150 ML 750 MG/150 ML BAG IVPB SCH (08:36)
[2016-08-05] MEDS: Fluticasone Propionate Nasal 50 MCG/SPRAY BOTTLE NS SCH (08:37)
[2016-08-05] MEDS: Ipratropium/Albuterol Neb 3 ML IH SCH ×2 (09:37→20:21)
[2016-08-05] MEDS: Ondansetron 4 MG/2 ML VIAL IVP PRN ×2 (12:54→22:12)
--- NOTE | 2016-08-05 17:14 | Internal Med Progress Note ---
Date of Encounter: 08/06/16 Time of Encounter: 17:13 - Assessment and plan (1) Polyarthritis Current Visit: Yes Status: Acute Assessment and plan: admitted with flare of of RA worsening wrist and knee joint pain noted that left knee arthrocentesis done Gram stain and culture negative so far WBC count around 49K in joint fluid patient is feeling little better plan will continue abx for now await for cultures cont steroids (2) Rheumatoid arthritis flare Current Visit: Yes Status: Acute Assessment and plan: recently started on DMARDs Rheumatology on board (3) Hypothyroidism Current Visit: Yes Status: Chronic Assessment and plan: stable Qualifiers: Hypothyroidism type: unspecified Qualified Code(s): E03.9 - Hypothyroidism , unspecified - Subjective Interval history: seen and examined. chart reviewed. patient still complains that she has knee joint pain. denies chest pain or SOB - Constitutional Vitals: Temp Pulse Resp BP Pulse Ox 98.5 F 90 15 109/66 97 08/05/16 15:55 08/05/16 15:55 08/05/16 15:55 08/05/16 15:55 08/05/16 15:55 General appearance: Present: mild distress, A&O X 3, pleasant - Head Head exam: Present: atraumatic, normocephalic - Eye Eye exam: Present: PERRL, conjuntiva pink, sclera anicteric Pupils: Present: PERRL - Neck Neck exam general surgery: Present: supple, trachea midline. Absent: lymphadenopathy - Respiratory Respiratory exam: Present: CTAB. Absent: accessory muscle use, rales, rhonchi, wheezes - Cardiovascular Cardiovascular exam: Present: RRR, +S1, +S2. Absent: diastolic murmur, gallop, rubs, systolic murmur - GI/Abdominal GI/Abdominal exam: Present: normal bowel sounds, soft, no peritoneal signs. Absent: distended, tenderness - Extremities Exam Extremities exam: Present: warm, radial pulses palpable and symetrical. Absent : calf tenderness, cyanotic, pedal edema - Neurological Exam Neurological exam: Present: CN II-XII intact, oriented X3, no focal deficits. Absent: pronater drift, facial droop, speech deficit - Skin Skin exam: Present: dry, intact Internal Medicine: Result - Labs CBC & Chem 7: 08/06/16 08:53 08/06/16 08:53 Labs: Short CBC 08/05/16 Range/Units 03:46 WBC 14.6 H (4.3-11.1) K/mcL Hgb 10.1 L (11.5-15.4) g/dL Hct 30.1 L (35.3-44.9) % Plt Count 213 (140-400) K/mcL Neutrophils # 12.0 H (1.6-8.9) K/mcL BMP 08/05/16 03:46 Sodium 133 L Potassium 3.1 L Chloride 103 Carbon Dioxide 24 BUN 9 Creatinine 0.52 L Glucose 114 H Calcium 9.0 Consult Discharge Plan - Plan Referrals: Neymar Berg DO [Partnered Physician] - 08/16/16 4:00 pm Fabien Franco MD [Primary Care Provider] -
[2016-08-06] MEDS: Ipratropium/Albuterol Neb 3 ML IH SCH ×2 (07:36→20:36)
[2016-08-06] MEDS: Tiotropium 18 MCG inhalation IH SCH (07:56)
[2016-08-06] MEDS: Levofloxacin 750 MG/150 ML 750 MG/150 ML BAG IVPB SCH (08:21)
[2016-08-06] MEDS: Aspirin Enteric Coated 81 MG Tablet PO SCH (08:22)
[2016-08-06] MEDS: Gabapentin 400 MG CAPSULE PO SCH ×3 (08:22→22:56)
[2016-08-06] MEDS: levETIRAcetam 250 MG TABLET PO SCH ×2 (08:23→22:57)
[2016-08-06] MEDS: Cholecalciferol (D-3) 1,000 UNIT TABLET PO SCH (08:23)
[2016-08-06] MEDS: predniSONE 20 MG TABLET PO SCH (08:23)
[2016-08-06] MEDS: Fluticasone Propionate Nasal 50 MCG/SPRAY BOTTLE NS SCH (08:24)
[2016-08-06 09:40] LABS: Alanine Aminotransferase 6 Units/L (0-55); Albumin 2.6 g/dL (3.5-5.0); Albumin/Globulin Ratio 0.8 (1.1-2.2); Alkaline Phosphatase 54 Units/L (38-126); Aspartate Amino Transferase 18 Units/L (5-34); BUN/Creatinine Ratio 16 (6-26); Bilirubin,Total 0.8 mg/dL (0.2-1.2); Blood Urea Nitrogen 9 mg/dL (7-20); Calcium 8.9 mg/dL (8.6-10.8); Carbon Dioxide 24 mEq/L (19-29); Chloride 102 mEq/L (98-109); Globulin 3.2 g/dL (2.4-3.5); Glucose 121 mg/dL (70-99); Osmolality,Calculated 276 (280-300); Potassium 2.8 mEq/L (3.5-4.5); Sodium 133 mEq/L (136-145); Total Protein 5.8 g/dL (6.0-8.3); eGFR For African Americans > 60 (> 60); eGFR For Non-African Americans > 60 (> 60)
[2016-08-06 09:46] LABS: Basophils % 0.1 %; Hematocrit 30.7 % (35.3-44.9); Hemoglobin 9.9 g/dL (11.5-15.4); Immature Granulocytes % 0.8 % (0-4); Lymphocytes # 0.6 K/mcL (0.6-4.6); Lymphocytes % 5.6 %; Mean Corpuscular HGB Conc 32.2 g/dL (31.6-35.5); Mean Platelet Volume 10.7 fL (9.4-12.4); Monocytes # 0.5 K/mcL (0.0-1.3); Monocytes % 4.3 %; Platelet Count 231 K/mcL (140-400); Red Blood Count 3.53 M/mcL (3.82-4.97); Red Cell Distribution Width 13.6 % (11.5-14.5); Segmented Neutrophils % 89.2 %
--- NOTE | 2016-08-06 15:25 | Internal Med Progress Note ---
Date of Encounter: 08/06/16 Time of Encounter: 15:22 - Assessment and plan (1) Polyarthritis Current Visit: Yes Status: Acute Assessment and plan: admitted with flare of of RA worsening wrist and knee joint pain noted that left knee arthrocentesis done Gram stain and culture negative so far WBC count around 49K in joint fluid patient is feeling little better plan will continue abx for now await for cultures cont steroids 08/06/2016 Joint fluid WBC count: 49,320 Segmented cells: More than 90% Gram stain: No organisms seen. Joint fluid culture: 48 hours, no bacterial growth Patient feels much better as compared to the day of arrival. Plan: Will continue present antibiotics at this time Await for rheumatology review Patient is keen to go to rehabilitation. Await for community mental health social worker input Spoke to infectious disease. Case discussed at length. Unlikely septic joint. recommended nitrofurantoin for possible UTI. (2) Rheumatoid arthritis flare Current Visit: Yes Status: Acute Assessment and plan: recently started on DMARDs Rheumatology on board (3) Hypothyroidism Current Visit: Yes Status: Chronic Assessment and plan: stable Qualifiers: Hypothyroidism type: unspecified Qualified Code(s): E03.9 - Hypothyroidism , unspecified - Subjective Interval history: seen and examined. chart reviewed. patient still complains that she has knee joint pain. denies chest pain or SOB 08/06/2016 Patient seen and examined. Chart reviewed. Patient is comfortably lying in a bed. She has occasional joint pains. Patient denies chest pain, shortness of breath, abdominal pain or nausea - Constitutional Vitals: Temp Pulse Resp BP Pulse Ox 98.6 F 98 16 131/76 97 08/06/16 12:00 08/06/16 12:00 08/06/16 12:00 08/06/16 12:08/06/16 12:00 General appearance: Present: mild distress, A&O X 3, pleasant - Head Head exam: Present: atraumatic, normocephalic - Eye Eye exam: Present: PERRL, conjuntiva pink, sclera anicteric Pupils: Present: PERRL - Neck Neck exam general surgery: Present: supple, trachea midline. Absent: lymphadenopathy - Respiratory Respiratory exam: Present: CTAB. Absent: accessory muscle use, rales, rhonchi, wheezes - Cardiovascular Cardiovascular exam: Present: RRR, +S1, +S2. Absent: diastolic murmur, gallop, rubs, systolic murmur - GI/Abdominal GI/Abdominal exam: Present: normal bowel sounds, soft, no peritoneal signs. Absent: distended, tenderness - Extremities Exam Extremities exam: Present: warm, radial pulses palpable and symetrical. Absent : calf tenderness, cyanotic, pedal edema Additional comments: She has occasional joint pain - Neurological Exam Neurological exam: Present: CN II-XII intact, oriented X3, no focal deficits. Absent: pronater drift, facial droop, speech deficit - Skin Skin exam: Present: dry, intact Internal Medicine: Result - Labs CBC & Chem 7: 08/06/16 08:53 08/06/16 08:53 Labs: Short CBC 08/06/16 Range/Units 08:53 WBC 11.2 H (4.3-11.1) K/mcL Hgb 9.9 L (11.5-15.4) g/dL Hct 30.7 L (35.3-44.9) % Plt Count 231 (140-400) K/mcL Neutrophils # 10.0 H (1.6-8.9) K/mcL BMP 08/06/16 08:53 Sodium 133 L Potassium 2.8 L Chloride 102 Carbon Dioxide 24 BUN 9 Creatinine 0.56 L Glucose 121 H Calcium 8.9 Liver Function 08/06/16 Range/Units 08:53 Total Bilirubin 0.8 (0.2-1.2) mg/dL AST 18 (5-34) Units/L ALT 6 (0-55) Units/L Alkaline Phosphatase 54 (38-126) Units/L Albumin 2.6 L (3.5-5.0) g/dL Consult Discharge Plan - Plan Referrals: Neymar Berg DO [Partnered Physician] - 08/16/16 4:00 pm Fabien Franco MD [Primary Care Provider] -
[2016-08-06] MEDS: Acetaminophen 325 MG TABLET PO PRN (23:01)
[2016-08-07 04:31] LABS: Basophils % 0.1 %; Eosinophils % 0.1 %; Hematocrit 28.3 % (35.3-44.9); Hemoglobin 9.2 g/dL (11.5-15.4); Immature Granulocytes % 0.6 % (0-4); Lymphocytes % 9.3 %; Mean Corpuscular HGB Conc 32.5 g/dL (31.6-35.5); Mean Corpuscular Hemoglobin 28.5 pg (28.0-33.3); Mean Corpuscular Volume 87.6 fL (83.0-100.0); Mean Platelet Volume 10.8 fL (9.4-12.4); Monocytes % 9.3 %; Neutrophils # 8.6 K/mcL (1.6-8.9); Platelet Count 243 K/mcL (140-400); Red Blood Count 3.23 M/mcL (3.82-4.97); Red Cell Distribution Width 13.4 % (11.5-14.5); Segmented Neutrophils % 80.6 %
[2016-08-07 04:32] LABS: Alanine Aminotransferase 7 Units/L (0-55); Albumin 2.4 g/dL (3.5-5.0); Albumin/Globulin Ratio 0.8 (1.1-2.2); Alkaline Phosphatase 51 Units/L (38-126); Aspartate Amino Transferase 20 Units/L (5-34); BUN/Creatinine Ratio 17 (6-26); Bilirubin,Total 0.6 mg/dL (0.2-1.2); Blood Urea Nitrogen 8 mg/dL (7-20); Calcium 8.9 mg/dL (8.6-10.8); Carbon Dioxide 23 mEq/L (19-29); Chloride 104 mEq/L (98-109); Globulin 3.2 g/dL (2.4-3.5); Glucose 90 mg/dL (70-99); Osmolality,Calculated 276 (280-300); Sodium 134 mEq/L (136-145); Total Protein 5.6 g/dL (6.0-8.3); eGFR For African Americans > 60 (> 60); eGFR For Non-African Americans > 60 (> 60)
[2016-08-07] MEDS: Ipratropium/Albuterol Neb 3 ML IH SCH ×2 (07:51→21:22)
[2016-08-07] MEDS: Tiotropium 18 MCG inhalation IH SCH (08:03)
[2016-08-07] MEDS: Gabapentin 400 MG CAPSULE PO SCH ×3 (08:27→21:10)
[2016-08-07] MEDS: Aspirin Enteric Coated 81 MG Tablet PO SCH (08:28)
[2016-08-07] MEDS: levETIRAcetam 250 MG TABLET PO SCH ×2 (08:28→21:09)
[2016-08-07] MEDS: predniSONE 20 MG TABLET PO SCH (08:29)
[2016-08-07] MEDS: Cholecalciferol (D-3) 1,000 UNIT TABLET PO SCH (08:29)
[2016-08-07] MEDS: Fluticasone Propionate Nasal 50 MCG/SPRAY BOTTLE NS SCH (08:30)
--- NOTE | 2016-08-07 14:26 | Internal Med Progress Note ---
Date of Encounter: 08/07/16 Time of Encounter: 14:23 - Assessment and plan (1) Polyarthritis Current Visit: Yes Status: Acute Assessment and plan: admitted with flare of of RA worsening wrist and knee joint pain noted that left knee arthrocentesis done Gram stain and culture negative so far WBC count around 49K in joint fluid patient is feeling little better plan will continue abx for now await for cultures cont steroids 08/06/2016 Joint fluid WBC count: 49,320 Segmented cells: More than 90% Gram stain: No organisms seen. Joint fluid culture: 48 hours, no bacterial growth Patient feels much better as compared to the day of arrival. Plan: Will continue present antibiotics at this time Await for rheumatology review Patient is keen to go to rehabilitation. Await for bilingual social worker input Spoke to infectious disease. Case discussed at length. Unlikely septic joint. recommended nitrofurantoin for possible UTI. 08/07/2016 Patient complains of persistent aches in her lower extremity joints. Patient feels that her joint fluid is back and feels very uncomfortable in bilateral lower extremity. I have discussed this case with Dr. De Los Santos He does not think that this is septic arthritis. Awaiting for rheumatology review for tomorrow. (2) Rheumatoid arthritis flare Current Visit: Yes Status: Acute Assessment and plan: recently started on DMARDs Rheumatology on board (3) Hypothyroidism Current Visit: Yes Status: Chronic Assessment and plan: stable Qualifiers: Hypothyroidism type: unspecified Qualified Code(s): E03.9 - Hypothyroidism , unspecified - Subjective Interval history: seen and examined. chart reviewed. patient still complains that she has knee joint pain. denies chest pain or SOB 08/06/2016 Patient seen and examined. Chart reviewed. Patient is comfortably lying in a bed. She has occasional joint pains. Patient denies chest pain, shortness of breath, abdominal pain or nausea 08/07/2016 Patient seen and examined. Chart reviewed. Agent is complaining of multiple joint pains. Patient feels that her joint is reaccumalated with with the fluid. - Constitutional Vitals: Temp Pulse Resp BP Pulse Ox 98.4 F 82 16 136/70 97 08/07/16 11:56 08/07/16 11:56 08/07/16 11:56 08/07/16 11:56 08/07/16 11:56 General appearance: Present: mild distress, A&O X 3, pleasant - Head Head exam: Present: atraumatic, normocephalic - Eye Eye exam: Present: PERRL, conjuntiva pink, sclera anicteric Pupils: Present: PERRL - Neck Neck exam general surgery: Present: supple, trachea midline. Absent: lymphadenopathy - Respiratory Respiratory exam: Present: CTAB. Absent: accessory muscle use, rales, rhonchi, wheezes - Cardiovascular Cardiovascular exam: Present: RRR, +S1, +S2. Absent: diastolic murmur, gallop, rubs, systolic murmur - GI/Abdominal GI/Abdominal exam: Present: normal bowel sounds, soft, no peritoneal signs. Absent: distended, tenderness - Extremities Exam Extremities exam: Present: warm, radial pulses palpable and symetrical. Absent : calf tenderness, cyanotic, pedal edema - Neurological Exam Neurological exam: Present: CN II-XII intact, oriented X3, no focal deficits. Absent: pronater drift, facial droop, speech deficit - Skin Skin exam: Present: dry, intact Internal Medicine: Result - Labs CBC & Chem 7: 08/07/16 03:55 08/07/16 03:55 Labs: Short CBC 08/07/16 Range/Units 03:55 WBC 10.7 (4.3-11.1) K/mcL Hgb 9.2 L (11.5-15.4) g/dL Hct 28.3 L (35.3-44.9) % Plt Count 243 (140-400) K/mcL Neutrophils # 8.6 (1.6-8.9) K/mcL BMP 08/07/16 03:55 Sodium 134 L Potassium 3.0 L Chloride 104 Carbon Dioxide 23 BUN 8 Creatinine 0.48 L Glucose 90 Calcium 8.9 Liver Function 08/07/16 Range/Units 03:55 Total Bilirubin 0.6 (0.2-1.2) mg/dL AST 20 (5-34) Units/L ALT 7 (0-55) Units/L Alkaline Phosphatase 51 (38-126) Units/L Albumin 2.4 L (3.5-5.0) g/dL Consult Discharge Plan - Plan Referrals: Neymar Berg DO [Partnered Physician] - 08/16/16 4:00 pm Fabien Franco MD [Primary Care Provider] -
[2016-08-08] MEDS: *HR* HYDROcodone/Acet 5/325 mg TABLET PO PRN (02:39)
[2016-08-08 04:17] LABS: Basophils % 0.1 %; Eosinophils % 0.6 %; Hematocrit 28.2 % (35.3-44.9); Hemoglobin 9.2 g/dL (11.5-15.4); Immature Granulocytes % 0.4 % (0-4); Lymphocytes # 1.5 K/mcL (0.6-4.6); Lymphocytes % 20.4 %; Mean Corpuscular HGB Conc 32.6 g/dL (31.6-35.5); Mean Corpuscular Hemoglobin 27.9 pg (28.0-33.3); Mean Corpuscular Volume 85.5 fL (83.0-100.0); Mean Platelet Volume 10.1 fL (9.4-12.4); Monocytes # 0.7 K/mcL (0.0-1.3); Monocytes % 9.5 %; Platelet Count 260 K/mcL (140-400); Red Cell Distribution Width 13.3 % (11.5-14.5)
[2016-08-08 04:40] LABS: Alanine Aminotransferase 14 Units/L (0-55); Albumin 2.4 g/dL (3.5-5.0); Albumin/Globulin Ratio 0.8 (1.1-2.2); Alkaline Phosphatase 49 Units/L (38-126); Aspartate Amino Transferase 32 Units/L (5-34); BUN/Creatinine Ratio 20 (6-26); Bilirubin,Total 0.3 mg/dL (0.2-1.2); Blood Urea Nitrogen 9 mg/dL (7-20); Calcium 8.5 mg/dL (8.6-10.8); Carbon Dioxide 25 mEq/L (19-29); Chloride 103 mEq/L (98-109); Glucose 93 mg/dL (70-99); Osmolality,Calculated 276 (280-300); Potassium 2.9 mEq/L (3.5-4.5); Sodium 134 mEq/L (136-145); Total Protein 5.4 g/dL (6.0-8.3); eGFR For African Americans > 60 (> 60); eGFR For Non-African Americans > 60 (> 60)
[2016-08-08] MEDS: Tiotropium 18 MCG inhalation IH SCH (07:42)
[2016-08-08] MEDS: Ipratropium/Albuterol Neb 3 ML IH SCH (07:43)
--- NOTE | 2016-08-08 07:46 | Rheumatology Progress Note ---
Date of Encounter: 08/08/16 Time of Encounter: 07:30 Rheumatology Assess and Plan (1) Polyarthritis Current Visit: Yes Status: Acute Improving polyarthritis; differential includes RA flare, Remicade side effect TNF induced lupus labs pending Continue prednisone; decrease to 40 mg x 3 days then decrease till 20 mg Follow-up in outpatient clinic (2) Rheumatoid arthritis involving multiple sites with positive rheumatoid factor Current Visit: Yes Status: Acute Prednisone taper Continue hydroxychloroquine Outpatient follow-up (3) On prednisone therapy Current Visit: Yes Status: Acute - Subjective Interval history: Patient is seen and examined. She reports over the weekend, she has continued to improve with oral prednisone. She is up ambulating and has noticed a significant decrease in her overall swelling. Today she reports minimal pain. She is having no fevers, no rashes, no oral lesions, no shortness of breath and no chest pain. Vitals reviewed. ROS General - No fevers/chills ENT - No oral ulcerations Heart - No chest pain/on palpitations Lungs - No cough, no shortness of breath, no pleuritic chest pain Skin - No rashes MSK - No painful or swollen joints Exam Vital Signs, Last 4 Hours Temp Pulse Resp BP Pulse Ox 08/08/16 04:00 98.0 F 76 16 121/69 98 Exam: General - Alert and oriented, no acute distress Psych - Affect full, oriented to person, place and time Eyes - Conjunctiva clear Lungs - Anterior exam clear to auscultation Heart - S1S2 RRR without murmurs or extra heart sounds MSK - Full active ROM, no synovitis/tenderness in upper extremities, left knee with small effusion but able to take through ROM Skin - No visible rashes, no cutaneous ulcerations Objective Data 08/08/16 03:55 08/08/16 03:55 All other labs normal. Consult Discharge Plan - Plan Referrals: Neymar Berg DO [Partnered Physician] - 08/16/16 4:00 pm Fabien Franco MD [Primary Care Provider] -
[2016-08-08 07:57] VITALS: BP 137/86
[2016-08-08] MEDS: Cholecalciferol (D-3) 1,000 UNIT TABLET PO SCH (08:22)
[2016-08-08] MEDS: Aspirin Enteric Coated 81 MG Tablet PO SCH (08:23)
[2016-08-08] MEDS: Gabapentin 400 MG CAPSULE PO SCH ×2 (08:23→15:07)
[2016-08-08] MEDS: predniSONE 20 MG TABLET PO SCH (08:23)
[2016-08-08] MEDS: levETIRAcetam 250 MG TABLET PO SCH (08:23)
[2016-08-08] MEDS: Fluticasone Propionate Nasal 50 MCG/SPRAY BOTTLE NS SCH (08:24)
[2016-08-08] MEDS ORDERED: Potassium Chloride Elixir 20 MEQ/15 ML UDC PO SCH (09:00)
[2016-08-08 10:29] LABS: ANA IgG by ELISA NONE DETECTED (None Detected); Complement Component 3 82 mg/dL (88-201)
[2016-08-08 10:30] LABS: Complement Component 4 2 mg/dL (10-40)
--- NOTE | 2016-08-08 11:29 | Discharge Summary ---
<Shahzad Gómez - Last Filed: 08/08/16 15:23> Date of Encounter: 08/08/16 Time of Encounter: 10:00 - Discharge Diagnosis (1) Polyarthritis Priority: Primary Status: Acute (2) Rheumatoid arthritis flare Priority: Primary Status: Acute (3) Hypothyroidism Priority: Secondary Status: Chronic Qualifiers: Hypothyroidism type: unspecified Qualified Code(s): E03.9 - Hypothyroidism , unspecified (4) UTI (urinary tract infection) Priority: Secondary Status: Resolved Qualifiers: Urinary tract infection type: acute cystitis Hematuria presence: without hematuria Qualified Code(s): N30.00 - Acute cystitis without hematuria (5) Hypokalemia Priority: Secondary Status: Acute Comments: Follow-up with primary care provider within one week - Discharge Medications Prescriptions: predniSONE [PredniSONE] 10 mg PO DAILY #27 tablet Home Medications: Hydroxychloroquine [Plaquenuil] 300 mg PO DAILY 04/20/16 [History] Oxygen 2 l NS HS 04/20/16 [History] Theophylline Anhydrous [Theodur] 300 mg PO BID 04/20/16 [History] Albuterol Neb [Proventil Neb] 2.5 mg IH TID PRN 08/04/16 [History] Albuterol Sulfate [Ventolin Hfa] 2 puff IH Q4H PRN 08/04/16 [History] Aspirin [Lo-Dose Aspirin EC] 81 mg PO DAILY 08/04/16 [History] Cholecalciferol (D-3) [Vitamin D] 2,000 unit PO DAILY 08/04/16 [History] Diclofenac Sodium [Voltaren] 1 appl TP QID PRN 08/04/16 [History] Ergocalciferol (VITAMIN D2) [Vitamin D2] 50,000 unit PO QWEEK 08/04/16 [History] Fluticasone Propionate Nasal [Flonase] 1 spray NS DAILY 08/04/16 [History] Gabapentin [Neurontin] 800 mg PO TID 08/04/16 [History] Ibandronate Sodium [Boniva] 150 mg PO QMONTH 08/04/16 [History] InFLIXimab [Remicade] 100 mg IV Q8W 08/04/16 [History] LevETIRAcetam [Keppra] 1,000 mg PO BID 08/04/16 [History] Levothyroxine [Synthroid] 75 mcg PO 0630 08/04/16 [History] Mometasone/Formoterol [Dulera 100 Mcg/5 Mcg Inhaler] 2 puff IH BID 08/04/16 [ History] Pantoprazole Sodium [Protonix] 40 mg PO DAILY 08/04/16 [History] Pravastatin Sodium 10 mg PO DAILY 08/04/16 [History] PredniSONE [Deltasone] 20 mg PO AD 08/04/16 [History] Primidone [Mysoline] 250 mg PO Q8HR 08/04/16 [History] Sertraline [Zoloft] 100 mg PO DAILY 08/04/16 [History] Tiotropium [Spiriva] 1 cap IH DAILY 08/04/16 [History] Zafirlukast [Accolate] 20 mg PO DAILY 08/04/16 [History] Acetaminophen [Tylenol] 650 mg PO Q6HR PRN #0 tablet 08/08/16 [Rx] predniSONE [PredniSONE] 10 mg PO DAILY #27 tablet 08/08/16 [Rx] Allergies/Adverse Reactions: Allergies clarithromycin Adverse Reaction (Verified 02/24/15 11:14) Muscle Pain codeine Adverse Reaction (Verified 02/24/15 11:14) Muscle Pain Penicillins [PCN] Adverse Reaction (Verified 02/24/15 11:14) Hives pregabalin Adverse Reaction (Verified 02/24/15 11:14) Muscle Pain Sulfa (Sulfonamide Antibiotics) Adverse Reaction (Verified 02/24/15 11:14) Nausea sulfamethoxazole [From Bactrim] Adverse Reaction (Verified 02/24/15 11:14) Nausea trimethoprim [From Bactrim] Adverse Reaction (Verified 02/24/15 11:14) Nausea - Notes to Outpatient Provider Please follow-up on documented hyperkalemia in patient Date of admission: 08/04/16 07:55 Primary care physician: Fabien Franco MD Consults: 08/04/16 10:23 Consult to Occupational Therapy [CONS] Routine Comment: Evaluate, develop and implement POC Reason for Consult: Rheumatoid arthritis, gait instability Consult to Physical Therapy [CONS] Routine Comment: Evaluate, develop and implement POC Reason for Consult: Gait assessment and implementation of aids, discharge disposition 08/04/16 12:19 Consult to Physician [CONS] Stat Consulting Provider: Neymar Berg Reason for Consult: Rheumatoid flare Call Completed: Yes 08/05/16 11:48 Consult to Elementary Educator [CONS] Routine Reason for SW Consult: PT/OT recommeding SNF/rehab. Patient and family agreeable. [facility] 08/06/16 17:09 Consult to Infectious Diseases [CONS] Routine Consulting Provider: Infectious Disease [facility] Reason for Consult: ?septic joint Call Completed: Yes Discharging clinician: Poncho Carey Anticipated date of discharge: 08/08/16 (Pending Mg Results) - Patient Status Disposition: Home, Self-Care Condition: Fair Functional capacity at discharge: independent ambulation Overall status at discharge: patient is back to baseline - Ambulatory Orders Ambulatory Orders: Basic Metabolic Panel [CHEM] Time Frame: 3 Days, Location: any - Discharge Instructions Instructions: Rheumatoid Arthritis (DC) Follow Up With: Shagufta Maldonado DO [Partnered Physician] - 08/15/16 9:30 am Neymar Berg DO [Partnered Physician] - 08/16/16 4:00 pm Forms: ED Satisfaction Letter, Work/School Release Additional Instructions: pcp requsted - Diet and Activity Activity: resume usual activities as tolerated Diet: advance to your usual diet Hospital course: Ms. Lucas is a 66 year old female with PMH of COPD on intermittent home O2, RA, Sjogren's syndrome, seizures, neuropathy, and hypothyroidism who was started recently on infliximab infusions on 07/28/16. She developed intense pains and fatigue since the infusion denied any fevers or chills or rash however she developed an intense pain in her knees such that she could not ambulate. She also experienced pain and swelling in her right and left wrists as well as her shoulders. In the ER she was found to have substantially swollen lower left knee, which was aspirated and the fluid contents was found to have 49,000 white blood cells with 97% neutrophils. Case was discussed with Dr. De LosS antos and it was determined that septic joint was unlikely at this time he recommended a prednisone taper and treatment for possible UTI.Nitrofurantoin was started along with a prednisone taper and the patient showed significant improvement over the course of her stay. Patient reports that she is now however able to ambulate with pain. Her joint swelling has also decreased during her stay here. Rheumatology is recommended that she be discharged and follow up within 1 week. Final sore labs also showed that the patient was hypokalemic at 2.9. Her potassium has been repleted and a basic metabolic panel is recommended within 3 days outpatient, and patient should follow up with primary care on the potassium value. Time spent discussing smoking cessation with patient: 3 to 10 minutes - Time Spent with Patient Total time spent providing and/or coordinating discharge services: Greater than 30 minutes Specific discharge activities: Patient can resume previous activity as tolerated - Constitutional Vitals: Temp Pulse Resp BP Pulse Ox 97.6 F 75 17 137/86 99 08/08/16 07:00 08/08/16 07:00 08/08/16 07:43 08/08/16 07:00 08/08/16 07:43 General appearance: Present: mild distress, A&O X 3, pleasant - Head Head exam: Present: atraumatic, normocephalic - Eye Eye exam: Present: PERRL, sclera anicteric Pupils: Present: PERRL - Neck Neck exam general surgery: Present: supple, trachea midline. Absent: lymphadenopathy - Respiratory Respiratory exam: Present: CTAB. Absent: accessory muscle use, rales, rhonchi, wheezes - Cardiovascular Cardiovascular exam: Present: RRR, +S1, +S2. Absent: diastolic murmur, gallop, rubs, systolic murmur - GI/Abdominal GI/Abdominal exam: Present: normal bowel sounds, soft, no peritoneal signs. Absent: distended, tenderness - Extremities Exam Extremities exam: Present: warm, radial pulses palpable and symetrical. Absent : calf tenderness, cyanotic, pedal edema - Expanded Lower Extremities Exam Upper Leg exam: Present: normal inspection Knee exam: Present: normal inspection Lower Leg exam: Present: normal inspection - Neurological Exam Neurological exam: Present: CN II-XII intact, oriented X3, no focal deficits. Absent: pronater drift, facial droop, speech deficit - Skin Skin exam: Present: dry, intact <Cherry,Poncho P - Last Filed: 08/08/16 17:43> Date of Encounter: 08/08/16 - Discharge Diagnosis (1) Polyarthritis Status: Acute (2) Rheumatoid arthritis flare Status: Acute (3) Hypothyroidism Status: Chronic Qualifiers: Hypothyroidism type: unspecified Qualified Code(s): E03.9 - Hypothyroidism , unspecified Date of admission: 08/04/16 07:55 Primary care physician: Fabien Franco MD Consults: 08/04/16 10:23 Consult to Occupational Therapy [CONS] Routine Comment: Evaluate, develop and implement POC Reason for Consult: Rheumatoid arthritis, gait instability Consult to Physical Therapy [CONS] Routine Comment: Evaluate, develop and implement POC Reason for Consult: Gait assessment and implementation of aids, discharge disposition 08/04/16 12:19 Consult to Physician [CONS] Stat Consulting Provider: Neymar Berg Reason for Consult: Rheumatoid flare Call Completed: Yes 08/05/16 11:48 Consult to Elementary Educator [CONS] Routine Reason for SW Consult: PT/OT recommeding SNF/rehab. Patient and family agreeable. [facility]. 08/06/16 17:09 Consult to Infectious Diseases [CONS] Routine Consulting Provider: Infectious Disease [place] Reason for Consult: ?septic joint Call Completed: Yes Hospital course: Ms. Lucas is a 66 year old female - Time Spent with Patient Total time spent providing and/or coordinating discharge services: - Constitutional Vitals: Temp Pulse Resp BP Pulse Ox 97.6 F 75 17 137/86 99 08/08/16 07:00 08/08/16 07:00 08/08/16 07:43 08/08/16 07:00 08/08/16 07:43 - Attending Attestation I examined this patient and my medical decision-making was reviewed with the PEOP[employer] DEVELOPER/PA/Advanced Practice Nurse/Resident Physician. I agree with the documented findings, disposition and treatment plan as described except to the extent set forth below. Patient will see Dr. De Los Santos sometime this week.
[2016-08-08] MEDS ORDERED: Potassium Chloride Elixir 20 MEQ/15 ML UDC PO ONE (13:00)
[2016-08-08 14:00] LABS: Magnesium 1.8 mg/dL (1.6-2.6)
== END 2016-08-08 16:15 | disposition home or self-care (01) ==
LOC: EMEROO 04:43 → 2NENU 04:43
PROVIDERS: ADMIT Internal Medicine; ATTEND Internal Medicine

== ENCOUNTER 2018-01-24 15:24 | Inpatient (IN) ==
--- NOTE | 2018-01-24 16:09 | Emergency Department Note ---
Disposition Clinical Impression: Contusion of left hip Qualifiers: Encounter type: initial encounter Qualified Code(s): S70.02XA - Contusion of left hip, initial encounter Disposition: Still a Patient Referrals: Fabien Franco MD [Primary Care Provider] - General Adult HPI - General Chief complaint: ED Extremity Injury, Lower Stated complaint: fall Time Seen by Provider: 01/24/18 15:27 Source: EMS Limitations: no limitations Nursing Notes Reviewed: Yes Vital Signs Reviewed: Yes - History of Present Illness HPI Narrative: ED ATTESTATION NOTE: I examined this patient and my medical decision-making was reviewed with the Resident Physician/RCP/PA/Student. I have personally performed a face to face evaluation on this patient & I agree with the documented findings, disposition and treatment plan as described except to the extent set forth below. Patient was seen with emergency medicine resident Dr. Angel Cartwright please see copy of his note for details of this encounter Briefly: 59-year-old female by EMS chemical slip fall right hip pain. There is no shortening or external rotation or deformity. Minor irritability of the right hip and pelvis. No instability to AP and lateral compressive forces she did not strike her head or loss of consciousness is not on blood thinners. Patient getting an AP pelvis bilateral hip films. Disposition pending. Pain Scale: 5 - Related Data Home Medications Medication Instructions Recorded Confirmed Hydroxychloroquine [Plaquenuil] 300 mg PO DAILY 04/20/16 11/21/17 Oxygen 2 l NS HS 04/20/16 11/21/17 Theophylline Anhydrous [Theodur] 300 mg PO BID 04/20/16 11/21/17 Albuterol Neb [Proventil Neb] 2.5 mg IH TID PRN 08/04/16 11/21/17 Albuterol Sulfate [Ventolin Hfa] 2 puff IH Q4H PRN 08/04/16 11/21/17 Aspirin [Lo-Dose Aspirin EC] 81 mg PO DAILY 08/04/16 11/21/17 Cholecalciferol (D-3) [Vitamin D] 2,000 unit PO DAILY 08/04/16 11/21/17 Diclofenac Sodium [Voltaren] 1 appl TP QID PRN 08/04/16 11/21/17 Ergocalciferol (VITAMIN D2) 50,000 unit PO QWEEK 08/04/16 11/21/17 [Vitamin D2] Fluticasone Propionate Nasal 1 spray NS DAILY 08/04/16 11/21/17 [Flonase] Gabapentin [Neurontin] 800 mg PO TID 08/04/16 11/21/17 Ibandronate Sodium [Boniva] 150 mg PO QMONTH 08/04/16 11/21/17 InFLIXimab [Remicade] 100 mg IV Q8W 08/04/16 11/21/17 LevETIRAcetam [Keppra] 1,000 mg PO BID 08/04/16 11/21/17 Levothyroxine [Synthroid] 75 mcg PO 0630 08/04/16 11/21/17 Mometasone/Formoterol [Dulera 100 2 puff IH BID 08/04/16 11/21/17 Mcg/5 Mcg Inhaler] Pantoprazole Sodium [Protonix] 40 mg PO DAILY 08/04/16 11/21/17 Pravastatin Sodium 10 mg PO DAILY 08/04/16 11/21/17 Primidone [Mysoline] 250 mg PO Q8HR 08/04/16 11/21/17 Sertraline [Zoloft] 100 mg PO DAILY 08/04/16 11/21/17 Tiotropium [Spiriva] 1 cap IH DAILY 08/04/16 11/21/17 Zafirlukast [Accolate] 20 mg PO DAILY 08/04/16 11/21/17 Previous Rx's Medication Instructions Recorded Acetaminophen [Tylenol] 650 mg PO Q6HR PRN #0 tablet 08/08/16 levoFLOXacin [Levaquin] 750 mg PO DAILY 7 Days #7 tablet 11/21/17 predniSONE [PredniSONE] 20 mg PO DAILY #18 tablet 11/21/17 Allergies Allergy/AdvReac Type Severity Reaction Status Date / Time clarithromycin AdvReac Muscle Pain Verified 11/21/17 19:16 codeine AdvReac Muscle Pain Verified 11/21/17 19:16 Penicillins [PCN] AdvReac Hives Verified 11/21/17 19:16 pregabalin AdvReac Muscle Pain Verified 11/21/17 19:16 Sulfa (Sulfonamide AdvReac Nausea Verified 11/21/17 19:16 Antibiotics) sulfamethoxazole AdvReac Nausea Verified 11/21/17 19:16 [From Bactrim] trimethoprim [From Bactrim] AdvReac Nausea Verified 11/21/17 19:16 Past Medical History - Past Medical History Medical history: Reports: aortic aneurysm, COPD, RA Surgical history: Reports: appendectomy, breast surgery, hysterectomy Psychiatric history: Reports: no psych history - Social History Smoking Status: Never smoker Smokeless Tobacco Status: No Alcohol use: Reports: none Drug use: Reports: none Physical Exam - General Limitations: no limitations General appearance: alert Course Vital Signs Temperature 97.6 F 01/24/18 15:31 Pulse Rate 65 01/24/18 15:31 Respiratory Rate 18 01/24/18 15:31 Blood Pressure 119/70 01/24/18 15:31 O2 Sat by Pulse Oximetry 99 01/24/18 15:31 Temperature 97.6 F 01/24/18 15:31 Pulse Rate 65 01/24/18 15:31 Respiratory Rate 18 01/24/18 15:31 Blood Pressure 119/70 01/24/18 15:31 O2 Sat by Pulse Oximetry 99 01/24/18 15:31 Oxygen Delivery Oxygen Delivery Room Air
--- NOTE | 2018-01-24 16:28 | Emergency Department Note ---
Disposition Clinical Impression: Fracture of femoral neck, right Qualifiers: Encounter type: initial encounter Fracture type: closed Qualified Code(s): S72.001A - Fracture of unspecified part of neck of right femur, initial encounter for closed fracture Disposition: Admitted As Inpatient Condition: Good Referrals: Fabien Franco MD [Primary Care Provider] - Forms: ED Satisfaction Letter Time of Disposition: 16:38 Lower Extremity Injury HPI - General Chief Complaint: ED Extremity Injury, Lower Stated Complaint: fall Time Seen by Provider: 01/24/18 15:27 Source: patient, EMS Mode of arrival: EMS Limitations: no limitations Nursing Notes Reviewed: Yes Vital Signs Reviewed: Yes - History of Present Illness HPI Narrative: 67-year-old female history of hyperlipidemia and COPD presents to the emergency department via EMS after fall. She is complaining of right hip pain. She was at her friends house when she stepped outside the door to leave and believe she tripped she fell on her right hip striking the concrete. She did fall down a few steps. She denies any loss of consciousness or head injury. Denies any neck pain. Denies alcohol use. Patient required assistance to get up. No prior surgeries to the extremity. Does not take any anticoagulants. She denies any prodromal symptoms prior to the fall such as headache, chest pain or shortness of breath. States this was purely a mechanical fall. - Related Data Home Medications Medication Instructions Recorded Confirmed Hydroxychloroquine [Plaquenuil] 300 mg PO DAILY 04/20/16 11/21/17 Oxygen 2 l NS HS 04/20/16 11/21/17 Theophylline Anhydrous [Theodur] 300 mg PO BID 04/20/16 11/21/17 Albuterol Neb [Proventil Neb] 2.5 mg IH TID PRN 08/04/16 11/21/17 Albuterol Sulfate [Ventolin Hfa] 2 puff IH Q4H PRN 08/04/16 11/21/17 Aspirin [Lo-Dose Aspirin EC] 81 mg PO DAILY 08/04/16 11/21/17 Cholecalciferol (D-3) [Vitamin D] 2,000 unit PO DAILY 08/04/16 11/21/17 Diclofenac Sodium [Voltaren] 1 appl TP QID PRN 08/04/16 11/21/17 Ergocalciferol (VITAMIN D2) 50,000 unit PO QWEEK 08/04/16 11/21/17 [Vitamin D2] Fluticasone Propionate Nasal 1 spray NS DAILY 08/04/16 11/21/17 [Flonase] Gabapentin [Neurontin] 800 mg PO TID 08/04/16 11/21/17 Ibandronate Sodium [Boniva] 150 mg PO QMONTH 08/04/16 11/21/17 InFLIXimab [Remicade] 100 mg IV Q8W 08/04/16 11/21/17 LevETIRAcetam [Keppra] 1,000 mg PO BID 08/04/16 11/21/17 Levothyroxine [Synthroid] 75 mcg PO 0630 08/04/16 11/21/17 Mometasone/Formoterol [Dulera 100 2 puff IH BID 08/04/16 11/21/17 Mcg/5 Mcg Inhaler] Pantoprazole Sodium [Protonix] 40 mg PO DAILY 08/04/16 11/21/17 Pravastatin Sodium 10 mg PO DAILY 08/04/16 11/21/17 Primidone [Mysoline] 250 mg PO Q8HR 08/04/16 11/21/17 Sertraline [Zoloft] 100 mg PO DAILY 08/04/16 11/21/17 Tiotropium [Spiriva] 1 cap IH DAILY 08/04/16 11/21/17 Zafirlukast [Accolate] 20 mg PO DAILY 08/04/16 11/21/17 Previous Rx's Medication Instructions Recorded Acetaminophen [Tylenol] 650 mg PO Q6HR PRN #0 tablet 08/08/16 levoFLOXacin [Levaquin] 750 mg PO DAILY 7 Days #7 tablet 11/21/17 predniSONE [PredniSONE] 20 mg PO DAILY #18 tablet 11/21/17 Allergies Allergy/AdvReac Type Severity Reaction Status Date / Time clarithromycin AdvReac Muscle Pain Verified 11/21/17 19:16 codeine AdvReac Muscle Pain Verified 11/21/17 19:16 Penicillins [PCN] AdvReac Hives Verified 11/21/17 19:16 pregabalin AdvReac Muscle Pain Verified 11/21/17 19:16 Sulfa (Sulfonamide AdvReac Nausea Verified 11/21/17 19:16 Antibiotics) sulfamethoxazole AdvReac Nausea Verified 11/21/17 19:16 [From Bactrim] trimethoprim [From Bactrim] AdvReac Nausea Verified 11/21/17 19:16 All systems ED: reviewed and negative except as stated. Review of Systems: As Per HPI Constitutional: Denies: fever, chills, weakness Cardiovascular: Denies: chest pain Respiratory: Denies: dyspnea Gastrointestinal: Denies: abdominal pain Musculoskeletal: Reports: arthralgia. Denies: back pain, neck pain Integumentary: Denies: rash Neurological: Denies: headache Past Medical History - Past Medical History Attestation: Yes The following information was validated with the patient. Source: patient Medical history: Reports: aortic aneurysm, COPD, RA Surgical history: Reports: appendectomy, breast surgery, hysterectomy Psychiatric history: Reports: no psych history - Social History Smoking Status: Never smoker Smokeless Tobacco Status: No Alcohol use: Reports: none Drug use: Reports: none Physical Exam - General Limitations: no limitations General appearance: alert, in no apparent distress - Head Head exam: atraumatic, normocephalic, normal inspection - Eye Eye exam: Present: normal appearance, PERRL, EOMI - Chest Chest inspection: Present: normal inspection, symmetric chest wall rise - Respiratory Respiratory exam: Present: normal lung sounds bilaterally. Absent: respiratory distress, wheezes - Cardiovascular Cardiovascular exam: Present: regular rate, normal rhythm, normal heart sounds - Abdominal Exam Abdominal exam: Present: soft, Non-Tender, normal bowel sounds. Absent: tenderness, distention, guarding, rebound, rigidity - Expanded Lower Extremity Exam Hip/Pelvis exam: Present: tenderness (Right hip), pelvis stable. Absent: deformity, external rotation, internal rotation, shortening Upper leg exam: Present: normal inspection, full ROM Knee exam: Present: normal inspection, full ROM Lower leg exam: Present: normal inspection, full ROM Ankle exam: Present: normal inspection, full ROM Foot/toe exam: Present: normal inspection, full ROM Neurovascular/Tendon exam: Present: normal capillary refill. Absent: pulse deficit, motor deficit, sensory deficit, tendon deficit - Neurological Exam Neurological exam: Present: alert, oriented X3 - Psychiatric Psychiatric exam: Present: normal affect, normal mood - Skin Skin exam: Present: warm, dry, intact, normal color Course Course Narrative: Patient presents with mechanical fall and pain to the right hip. There is tend erness to the right hip in her right leg is slightly rotated. X-ray the pelvis. No reported head injury. Patient does not take anticoagulants. - Reevaluation(s) Reevaluation #1: X-ray shows acute nondisplaced right femoral neck fracture. She continues to be tender to that region. Neurovascular he intact. Patient will be admitted for further management. Fentanyl for pain. Will check preadmission labs and EKG. - Consultations Consultation #1: Discuss the case and imaging with the on-call orthopedic surgeon Dr. Jade, agree with admission to medicine and will evaluate in the morning. Time: 16:38 Consultation #2: Spoke with on-call hospitalist roseanna Anne to admit for right hip fx. No further orders at this time Time: 17:36 Vital Signs Temperature 97.6 F 01/24/18 15:31 Pulse Rate 65 01/24/18 15:31 Respiratory Rate 18 01/24/18 15:31 Blood Pressure 119/70 01/24/18 15:31 O2 Sat by Pulse Oximetry 99 01/24/18 15:31 Temperature 97.6 F 01/24/18 15:31 Pulse Rate 71 01/24/18 17:09 Respiratory Rate 13 01/24/18 17:09 Blood Pressure 121/76 01/24/18 17:09 O2 Sat by Pulse Oximetry 93 01/24/18 17:09 Oxygen Delivery Oxygen Delivery Room Air Extremity Injury, Lower - MDM Narrative Medical decision making narrative: Patient was discussed with my attending physician who agrees with ED management and final disposition. They independently evaluated the patient. Please refer to their attestation to this encounter for additional information. This note was generated by [employer] voice recognition software and as a result grammatical or spelling errors may occur using this program. - Medical Records Medical records reviewed: Yes I reviewed the patient's medical records. - Lab Data Lab results reviewed: Yes I reviewed the patient's lab results. Result diagrams: 01/24/18 17:04 01/24/18 17:04 Lab Results 01/24/18 01/24/18 01/24/18 Range/Units 17:04 17:04 17:04 WBC 11.2 H (4.3-11.1) K/mcL RBC 3.70 L (3.82-4.97) M/mcL Hgb 11.2 L (11.5-15.4) g/dL Hct 33.5 L (35.3-44.9) % MCV 90.5 (83.0-100.0) fL MCH 30.3 (28.0-33.3) pg MCHC 33.4 (31.6-35.5) g/dL RDW 13.9 (11.5-14.5) % Plt Count 242 (140-400) K/mcL MPV 10.0 (9.4-12.4) fL Immature Gran % 0.5 (0-4) % Seg Neutrophils % 83.5 % Lymphocytes % 7.0 % Monocytes % 5.6 % Eosinophils % 3.0 % Basophils % 0.4 % Neutrophils # 9.3 H (1.6-8.9) K/mcL Lymphocytes # 0.8 (0.6-4.6) K/mcL Monocytes # 0.6 (0.0-1.3) K/mcL Eosinophils # 0.3 (0.0-0.6) K/mcL Basophils # 0.1 (0.0-0.2) K/mcL PT 12.7 H (9.4-12.1) Seconds INR 1.1 Sodium 136 (136-145) mEq/L Potassium 3.5 (3.5-5.1) mEq/L Chloride 107 (98-107) mEq/L Carbon Dioxide 24 (23-29) mEq/L BUN 7 L (8-23) mg/dL Creatinine 0.44 L (0.60-1.20) mg/dL Est GFR ( Amer) > 60 (> 60) Est GFR (Non-Af Amer) > 60 (> 60) BUN/Creatinine Ratio 16 (6-26) Glucose 118 H (70-105) mg/dL Calculated Osmolality 281 (280-300) Calcium 8.7 (8.6-10.3) mg/dL - Radiology Data Radiology results reviewed: Yes I reviewed the patient's radiology results. Hip/Pelvis X-Ray 01/24/18 15:31 IMPRESSION: Acute nondisplaced fracture of the right femoral neck. Consider further characterization with a follow-up cross-sectional imaging study. D/ / Kai Shaver MD / Kai Shaver MD Interpreting Provider: Kai Shaver MD - EKG Data EKG attestation: Yes I reviewed and interpreted this EKG. EKG results narrative: EKG performed 17 7 normal sinus rhythm 74 beats per minute, normal axis, good R wave progression, no ST elevation or depression, T waves inverted in V1 through the V3, these findings are consistent with prior EKG performed 08/04/2016. No acute ischemic changes.
[2018-01-24] MEDS ORDERED: *HR* FentaNYL (PF) 100 MCG/2 ML VIAL IVP ONE (16:42)
[2018-01-24 17:21] LABS: Basophils # 0.1 K/mcL (0.0-0.2); Basophils % 0.4 %; Eosinophils # 0.3 K/mcL (0.0-0.6); Hematocrit 33.5 % (35.3-44.9); Hemoglobin 11.2 g/dL (11.5-15.4); Immature Granulocytes % 0.5 % (0-4); Lymphocytes # 0.8 K/mcL (0.6-4.6); Mean Corpuscular HGB Conc 33.4 g/dL (31.6-35.5); Mean Corpuscular Hemoglobin 30.3 pg (28.0-33.3); Mean Corpuscular Volume 90.5 fL (83.0-100.0); Monocytes # 0.6 K/mcL (0.0-1.3); Monocytes % 5.6 %; Neutrophils # 9.3 K/mcL (1.6-8.9); Platelet Count 242 K/mcL (140-400); Red Cell Distribution Width 13.9 % (11.5-14.5); Segmented Neutrophils % 83.5 %
[2018-01-24 17:28] LABS: INR 1.1; Prothrombin Time 12.7 Seconds (9.4-12.1)
[2018-01-24 17:34] LABS: BUN/Creatinine Ratio 16 (6-26); Blood Urea Nitrogen 7 mg/dL (8-23); Calcium 8.7 mg/dL (8.6-10.3); Carbon Dioxide 24 mEq/L (23-29); Chloride 107 mEq/L (98-107); Glucose 118 mg/dL (70-105); Osmolality,Calculated 281 (280-300); Potassium 3.5 mEq/L (3.5-5.1); Sodium 136 mEq/L (136-145); eGFR For Non-African Americans > 60 (> 60)
[2018-01-24] MEDS ORDERED: Naloxone 0.4 MG/ML INJ IVP PRN ×2 (18:19)
[2018-01-24] MEDS ORDERED: Ondansetron 4 MG/2 ML VIAL IVP PRN (18:19)
[2018-01-24] MEDS ORDERED: OXYCODONE Oral CONC 10 MG/0.5 ML ORAL.SYG SL PRN (18:19)
[2018-01-24] MEDS ORDERED: Ipratropium/Albuterol Neb 3 ML IH PRN (18:22)
--- NOTE | 2018-01-24 18:27 | Internal Med History&Physical ---
Addendum entered and electronically signed by Galen Reyna DO 01/24/18 20:34: Denies significant family history. Original Note: <Shahzad Berman - Last Filed: 01/24/18 18:24> Date of Encounter: 01/24/18 Time of Encounter: 18:24 Internal Medicine - H&P: HPI Chief complaint: Fall/hip pain Admitted From: Emergency Dept Plans for Post Hospital Care: Home History of present illness: Ms. Lucas is a 67 year old female with history of rheumatoid arthritis, asthma, o steoporosis presents with right hip pain after a fall. She states she was helping a friend with the cancer Center and tripped on the way out and landed on her right hip. She complains of persistent right hip pain that is in the lateral aspect radiating to the posterior aspect of her hip and down her leg. She denies any other painful joints. She denies any change in sensation in her lower leg. She denies any dizziness, lightheadedness, loss of consciousness. She states she did not hit her head. Past Med Surg Social Fam HX - Past Medical History Medical history: aortic aneurysm, COPD, RA Additional medical history: seizures disorder years since last one, Psychiatric history: no psych history - Past Surgical History Surgical History: appendectomy, breast surgery, hysterectomy - Social History Smoking Status: Never smoker Smokeless Tobacco Status: No Alcohol use: none Drug use: none Internal Medicine - H&P: Meds RX: Hydroxychloroquine [Plaquenuil] 300 mg PO DAILY 04/20/16 [History] RX: Oxygen 2 l NS HS 04/20/16 [History] RX: Theophylline Anhydrous [Theodur] 300 mg PO BID 04/20/16 [History] RX: Albuterol Neb [Proventil Neb] 2.5 mg IH TID PRN 08/04/16 [History] RX: Albuterol Sulfate [Ventolin Hfa] 2 puff IH Q4H PRN 08/04/16 [History] RX: Aspirin [Lo-Dose Aspirin EC] 81 mg PO QPM 08/04/16 [History] RX: Diclofenac Sodium [Voltaren] 1 appl TP QID PRN 08/04/16 [History] RX: Ergocalciferol (VITAMIN D2) [Vitamin D2] 50,000 unit PO MO 08/04/16 [History] RX: Gabapentin [Neurontin] 800 mg PO BID 08/04/16 [History] RX: LevETIRAcetam [Keppra] 1,000 mg PO BID 08/04/16 [History] RX: Levothyroxine [Synthroid] 75 mcg PO 0630 08/04/16 [History] RX: Mometasone/Formoterol [Dulera 100 Mcg/5 Mcg Inhaler] 2 puff IH BID 08/04/16 [History] RX: Pantoprazole Sodium [Protonix] 40 mg PO DAILY 08/04/16 [History] RX: Pravastatin Sodium 10 mg PO DAILY 08/04/16 [History] RX: Primidone [Mysoline] 250 mg PO Q8HR 08/04/16 [History] RX: Sertraline [Zoloft] 100 mg PO DAILY 08/04/16 [History] RX: Tiotropium [Spiriva] 2 puff IH DAILY 08/04/16 [History] RX: Zafirlukast [Accolate] 20 mg PO BID 08/04/16 [History] RX: Acetaminophen [Tylenol] 650 mg PO Q6HR PRN #0 tablet 08/08/16 [Rx] Methotrexate [Otrexup] 15 mg PO WE 01/24/18 [History] RX: Folic Acid 1 mg PO QAM 01/24/18 [History] Allergy/AdvReac Type Severity Reaction Status Date / Time clarithromycin AdvReac Muscle Pain Verified 11/21/17 19:16 codeine AdvReac Muscle Pain Verified 11/21/17 19:16 Penicillins [PCN] AdvReac Hives Verified 11/21/17 19:16 pregabalin AdvReac Muscle Pain Verified 11/21/17 19:16 Sulfa (Sulfonamide AdvReac Nausea Verified 11/21/17 19:16 Antibiotics) sulfamethoxazole AdvReac Nausea Verified 11/21/17 19:16 [From Bactrim] trimethoprim [From Bactrim] AdvReac Nausea Verified 11/21/17 19:16 All Systems PM: A 10-system review of systems was performed and is negative for pertinent findings except as documented above in the HPI. - Constitutional Constitutional: falls, no chills, no fever(s) - EENT Eyes: no blurry vision, no change in vision Nose, mouth and throat: no sinus pain, no sinus pressure - Cardiovascular Cardiovascular ROS IM: no chest pain, no palpitations - Respiratory Respiratory: no cough, no dyspnea - Gastrointestinal Gastrointestinal: no abdominal pain, no nausea, no vomiting - Genitourinary Genitourinary: no dysuria - Musculoskeletal Musculoskeletal ROS IM: arthralgias, deformity, no numbness, no tingling - Integumentary Integumentary IM: no erythema, no rash, no unusual bruising - Neurological Neurological ROS: no abnormal gait, no dizziness, no frequent falls - Psychiatric Psychiatric: no confusion - Hematologic/Lymphatic Hematologic/Lymphatic: no easy bruising - Constitutional Vitals: Temp Pulse Resp BP Pulse Ox 97.6 F 71 13 121/76 93 01/24/18 15:31 01/24/18 17:09 01/24/18 17:09 01/24/18 17:09 01/24/18 17:09 General appearance: Present: A&O X 3, pleasant, no acute distress Exam: . - Head Head exam: Present: atraumatic, normal inspection, normocephalic - Eye Eye exam: Present: EOMI, PERRL - ENT ENT exam: Present: mucous membranes moist - Respiratory Respiratory exam: Present: CTAB. Absent: rales, rhonchi, wheezes - Cardiovascular Cardiovascular exam: Present: RRR. Absent: gallop, rubs, systolic murmur - GI/Abdominal GI/Abdominal exam: Present: normal bowel sounds, soft. Absent: distended, tenderness - Extremities Exam Extremities exam: Absent: calf tenderness Additional comments: Right hip: No ecchymosis or swelling noted, no obvious deformity. Tender to light palpation. - Neurological Exam Neurological exam: Present: alert, oriented X3, no focal deficits - Psychiatric Psychiatric exam: Present: normal affect, normal mood - Skin Skin exam: Present: dry, intact, warm Internal Med - H&P Results - Labs CBC & Chem 7: 01/24/18 17:04 01/24/18 17:04 Labs: Short CBC 01/24/18 Range/Units 17:04 WBC 11.2 H (4.3-11.1) K/mcL Hgb 11.2 L (11.5-15.4) g/dL Hct 33.5 L (35.3-44.9) % Plt Count 242 (140-400) K/mcL Neutrophils # 9.3 H (1.6-8.9) K/mcL BMP 01/24/18 17:04 Sodium 136 Potassium 3.5 Chloride 107 Carbon Dioxide 24 BUN 7 L Creatinine 0.44 L Glucose 118 H Calcium 8.7 - Impressions ITS Impressions Hip/Pelvis X-Ray 01/24/18 15:31 IMPRESSION: Acute nondisplaced fracture of the right femoral neck. Consider further characterization with a follow-up cross-sectional imaging study. D/ / Kai Shaver MD / Kai Shaver MD Interpreting Provider: Kai Shaver MD Hip CT 01/24/18 17:31 IMPRESSION: Garden 2 fracture of right femoral neck. Generalized osteopenia. D/ / Kanika Meier MD / Kanika Meier MD Interpreting Provider: Kanika Meier MD - Assessment and plan (1) Fracture of femoral neck, right Current Visit: Yes Status: Acute Assessment and plan: Secondary to fall. Nondisplaced. Garden to fracture per CT. Admitted for pain control overnight, we will make nothing by mouth for ortho eval in the morning Qualifiers: Encounter type: initial encounter Fracture type: closed Qualified Cod e(s): S72.001A - Fracture of unspecified part of neck of right femur, initial encounter for closed fracture (2) Fall Current Visit: Yes Status: Acute Assessment and plan: Mechanical fall. Resulting in right hip fracture as discussed above. Denies loss of consciousness or head injury. Qualifiers: Encounter type: initial encounter Qualified Code(s): W19.XXXA - Unspecified fall, initial encounter (3) Asthma Current Visit: Yes Status: Acute Assessment and plan: Respiratory status at baseline. When necessary duo nebs for shortness of breath. Qualifiers: Asthma severity: unspecified severity Asthma persistence: unspecified Asthma complication type: uncomplicated Qualified Code(s): J45.909 - Unspecified asthma, uncomplicated (4) Sjogrens syndrome Current Visit: No Status: Chronic Qualifiers: Sjogren's organ involvement: unspecified organ involvement Qualified Code(s): M35.00 - Sicca syndrome, unspecified (5) Hypothyroidism Current Visit: No Status: Chronic Qualifiers: Hypothyroidism type: unspecified Qualified Code(s): E03.9 - Hypothyroidism, unspecified (6) Rheumatoid arthritis Current Visit: No Status: Chronic Qualifiers: Rheumatoid arthritis location: unspecified site Rheumatoid factor presence: with rheumatoid factor Qualified Code(s): M05.9 - Rheumatoid arthritis with rheumatoid factor, unspecified (7) DVT prophylaxis Current Visit: Yes Status: Acute Assessment and plan: Heparin 5000 units subcutaneous twice a day. (8) Osteoporosis Current Visit: Yes Status: Acute Assessment and plan: Currently his osteoporosis on appropriate therapy, had been on Boniva in the past. Likely contributed to the patient's fracture. She states she had been recently started on prednisone about 5 days ago for joint pain however she states before this it is been an extended period of time since she has taken pre dnisone and is not on chronic steroids. Qualifiers: Osteoporosis type: unspecified Presence of current pathological fracture: with current pathological fracture Encounter type: initial encounter Qualifi ed Code(s): M80.00XA - Age-related osteoporosis with current pathological fracture, unspecified site, initial encounter for fracture - Time Spent With Patient Total time spent is greater than 50% in coordination of care (as documented) at patient's floor/unit and/or counseling patient: <Galen Reyna Karlee - Last Filed: 01/24/18 20:04> Date of Encounter: 01/24/18 Internal Medicine - H&P: HPI History of present illness: Ms. Lucas is a 67 year old female Past Med Surg Social Fam HX - Past Medical History Medical history: seizures - Family History Mother Adopted: No Living Status: Hx Family Respiratory Disorders: No Hx Family Endocrine Disorder: No All Systems PM: A 10-system review of systems was performed and is negative for pertinent findin gs except as documented above in the HPI. - Constitutional Vitals: Temp Pulse Resp BP Pulse Ox 97.6 F 71 20 129/79 93 01/24/18 15:31 01/24/18 17:09 01/24/18 18:42 01/24/18 18:42 01/24/18 17:09 Internal Med - H&P Results - Labs CBC & Chem 7: 12/19/18 17:04 01/24/18 17:04 Labs: Short CBC 01/24/18 Range/Units 17:04 WBC 11.2 H (4.3-11.1) K/mcL Hgb 11.2 L (11.5-15.4) g/dL Hct 33.5 L (35.3-44.9) % Plt Count 242 (140-400) K/mcL Neutrophils # 9.3 H (1.6-8.9) K/mcL BMP 01/24/18 17:04 Sodium 136 Potassium 3.5 Chloride 107 Carbon Dioxide 24 BUN 7 L Creatinine 0.44 L Glucose 118 H Calcium 8.7 - Impressions ITS Impressions Hip/Pelvis X-Ray 01/24/18 15:31 IMPRESSION: Acute nondisplaced fracture of the right femoral neck. Consider further characterization with a follow-up cross-sectional imaging study. D/ / Kai Shaver MD / Kai Shaver MD Interpreting Provider: Kai Shaver MD Hip CT 01/24/18 17:31 IMPRESSION: Garden 2 fracture of right femoral neck. Generalized osteopenia. D/ / Kanika Meier MD / Kanika Meier MD Interpreting Provider: Kanika Meier MD - Assessment and plan (1) Sjogrens syndrome Current Visit: No Status: Chronic Qualifiers: Sjogren's organ involvement: unspecified organ involvement Qualified Code(s): M35.00 - Sicca syndrome, unspecified (2) Hypothyroidism Current Visit: No Status: Chronic Qualifiers: Hypothyroidism type: acquired Qualified Code(s): E03.9 - Hypothyroidism, unspecified (3) Rheumatoid arthritis Current Visit: No Status: Chronic Qualifiers: Rheumatoid arthritis location: multiple sites Rheumatoid factor presence: with rheumatoid factor Qualified Code(s): M05.79 - Rheumatoid arthritis with rheumatoid factor of multiple sites without organ or systems involvement (4) Fracture of femoral neck, right Current Visit: Yes Status: Acute Qualifiers: Encounter type: initial encounter Fracture type: closed Qualified Code(s): S72.001A - Fracture of unspecified part of neck of right femur, initial encounter for closed fracture (5) Asthma Current Visit: Yes Status: Acute Qualifiers: Asthma severity: unspecified severity Asthma persistence: unspecified Asthma complication type: uncomplicated Qualified Code(s): J45.909 - Unspecif ied asthma, uncomplicated (6) Fall Current Visit: Yes Status: Acute Qualifiers: Encounter type: initial encounter Qualified Code(s): W19.XXXA - Unspecified fall, initial encounter (7) DVT prophylaxis Current Visit: Yes Status: Acute (8) Osteoporosis Current Visit: Yes Status: Acute Qualifiers: Osteoporosis type: other Presence of current pathological fracture: with current pathological fracture Encounter type: initial encounter Qualified Code(s): M80.80XA - Other osteoporosis with current pathological fracture, unsp ecified site, initial encounter for fracture (9) Seizures Current Visit: No Status: Chronic - Time Spent With Patient Total time spent is greater than 50% in coordination of care (as documented) at patient's floor/unit and/or counseling patient: - Attending Attestation I examined this patient and my medical decision-making was reviewed with the Resident Physician on 01/24/18. I agree with the documented findings, disposition and treatment plan as described except to the extent set forth below. Ms Lucas is 67 y/o female with hx of RA tripped today and found to have acute hip fracture. She was subsequently admitted. Ms Lucas was walking today and tripped. She was complaining of R hip pain and found to have femoral neck fracture. She is having some pain at this time. She also has hx of asthma and seizure disorder and has taken prednisone in the past. She has significant osteoporosis as well. Exam alert Mod distress due to pain Mucus membranes dry Heart reg and not tachy Lungs clear at this time Abd soft and nontender R leg with tenderness groin No edema I/P 1. R hip fracture - plan for OR tomorrow. 2. Seizure disorder - continue home meds 3. Asthma - not in exacerbation. 4. Osteoporosis 5. RA - hx of steroid use. Will cover with Solucortef Pt is moderate but acceptable risk for surgery Further diagnoses and plan as above.
[2018-01-24] MEDS ORDERED: DICLOFENAC SODIUM TP PRN (19:52)
[2018-01-24] MEDS: Gabapentin 400 MG CAPSULE PO SCH (20:50)
[2018-01-24] MEDS: levETIRAcetam 250 MG TABLET PO SCH (20:51)
[2018-01-24] MEDS: Ketorolac 30 MG/ML VIAL IVP PRN (20:53)
[2018-01-24] MEDS ORDERED: Budesonide/Formoterol 80/4.5 MDI IH SCH (21:00)
[2018-01-24] MEDS ORDERED: NON-FORMULARY MEDICATION 1 EACH EACH (Oxygen [Oxygen] 2 L) NS SCH (21:00)
[2018-01-24] MEDS: *HR* Heparin 5,000 UNIT/ML VIAL SQ SCH (22:48)
[2018-01-24] MEDS: *HR* Methotrexate 2.5 MG TABLET PO SCH ×2 (23:26→23:43)
[2018-01-24] MEDS: Hydrocortisone Sodium Succ 100 MG/2 ML VIAL IVP SCH (23:43)
[2018-01-25] MEDS: Hydrocortisone Sodium Succ 100 MG/2 ML VIAL IVP SCH ×4 (00:35→23:19)
[2018-01-25] MEDS: OXYCODONE Oral CONC 10 MG/0.5 ML ORAL.SYG SL PRN ×2 (02:14→14:35)
[2018-01-25] MEDS: *HR* Heparin 5,000 UNIT/ML VIAL SQ SCH ×2 (04:53→21:44)
[2018-01-25 06:15] LABS: Basophils % 0.2 %; Eosinophils % 0.3 %; Hematocrit 34.3 % (35.3-44.9); Hemoglobin 11.3 g/dL (11.5-15.4); Immature Granulocytes % 0.3 % (0-4); Lymphocytes # 0.4 K/mcL (0.6-4.6); Lymphocytes % 6.8 %; Mean Corpuscular HGB Conc 32.9 g/dL (31.6-35.5); Mean Platelet Volume 10.2 fL (9.4-12.4); Monocytes # 0.5 K/mcL (0.0-1.3); Monocytes % 8.4 %; Neutrophils # 5.2 K/mcL (1.6-8.9); Platelet Count 232 K/mcL (140-400); Red Blood Count 3.77 M/mcL (3.82-4.97); Red Cell Distribution Width 13.9 % (11.5-14.5)
[2018-01-25 06:29] LABS: BUN/Creatinine Ratio 19 (6-26); Blood Urea Nitrogen 8 mg/dL (8-23); Calcium 8.2 mg/dL (8.6-10.3); Carbon Dioxide 23 mEq/L (23-29); Chloride 105 mEq/L (98-107); Glucose 120 mg/dL (70-105); Magnesium 2.3 mg/dL (1.6-2.6); Osmolality,Calculated 280 (280-300); Potassium 3.9 mEq/L (3.5-5.1); Sodium 135 mEq/L (136-145); eGFR For Non-African Americans > 60 (> 60)
[2018-01-25] MEDS: levETIRAcetam 250 MG TABLET PO SCH ×2 (07:54→21:56)
[2018-01-25] MEDS: Gabapentin 400 MG CAPSULE PO SCH ×2 (07:54→21:56)
--- NOTE | 2018-01-25 08:33 | Internal Med Progress Note ---
<Eduardo Flynn Karlee - Last Filed: 01/25/18 13:09> Hospitalist Progress Note - Encounter Date of Encounter: 01/25/18 Time of Encounter: 08:15 - Subjective Interval History: Ms. Lucas is a 67 year old female who was examined at bedside and complains of persistent right hip pain that is in the lateral aspect radiating to the posterior aspect of her hip and down her leg since her fall on 01/24. She denies any dizziness, lightheadedness, loss of consciousness, headache, chest pain, shortness of breath, change in sensation in her lower leg. She says she has been stable since yesterday with no new symptoms. She says she is very independent at home and would like to do home exercises after her surgery planned for today at 5:30 P.M. Past Med Surg Social Fam HX - Past Medical History Medical history: aortic aneurysm, COPD, RA Additional medical history: seizures disorder years since last one, Psychiatric history: no psych history - Past Surgical History Surgical History: appendectomy, breast surgery, hysterectomy - Social History Smoking Status: Never smoker Smokeless Tobacco Status: No Alcohol use: none Drug use: none All Systems PM: A 10-system review of systems was performed and is negative for pertinent findings except as documented above in the HPI. - Constitutional Constitutional: fall, no chills, no fever(s) - EENT Eyes: no blurry vision, no change in vision Nose, mouth and throat: no sinus pain, no sinus pressure - Cardiovascular Cardiovascular ROS IM: no chest pain, no palpitations - Respiratory Respiratory: no cough, no dyspnea - Gastrointestinal Gastrointestinal: no abdominal pain, no nausea, no vomiting - Genitourinary Genitourinary: no dysuria - Musculoskeletal Musculoskeletal ROS IM: arthralgias, deformity, no numbness, no tingling - Integumentary Integumentary IM: no erythema, no rash, no unusual bruising - Neurological Neurological ROS: no abnormal gait, no dizziness, no frequent falls - Psychiatric Psychiatric: no confusion - Hematologic/Lymphatic Hematologic/Lymphatic: no easy bruising - Exam Vitals: Temp Pulse Resp BP Pulse Ox 97.9 F 84 16 134/73 95 01/25/18 07:11 01/25/18 07:11 01/25/18 07:11 01/25/18 07:11 12/20/18 07:11 Exam: General appearance: Present: A&O X 3, pleasant, no acute distress Exam: . - Head Head exam: Present: atraumatic, normal inspection, normocephalic - Eye Eye exam: Present: EOMI, PERRL - ENT ENT exam: Present: mucous membranes moist - Respiratory Respiratory exam: Present: CTAB. Absent: rales, rhonchi, wheezes - Cardiovascular Cardiovascular exam: Present: RRR. Absent: gallop, rubs, systolic murmur - GI/Abdominal GI/Abdominal exam: Present: normal bowel sounds, soft. Absent: distended, tenderness - Extremities Exam Extremities exam: Absent: calf tenderness Additional comments: Right hip: No ecchymosis or swelling noted, no obvious deformity. Tender to light palpation. - Neurological Exam Neurological exam: Present: alert, oriented X3, no focal deficits - Psychiatric Psychiatric exam: Present: normal affect, normal mood - Skin Skin exam: Present: dry, intact, warm - Assessment and Plan (1) Fracture of femoral neck, right Current Visit: Yes Status: Acute Assessment and Plan: Secondary to fall. Nondisplaced. Garden [address] Admitted for pain control overnight. Ortho made their evaluation this morning and cleared her for surgery. Surgery planned for 5:30 P.M. Pending recommendation from ortho and PT/OT following surgery regarding rehabilitation. (2) Fall Current Visit: Yes Status: Acute Assessment and Plan: Mechanical fall. Resulting in right hip fracture as discussed above. Denies loss of consciousness or head injury. (3) Asthma Current Visit: Yes Status: Acute Assessment and Plan: Respiratory status at baseline. When necessary duo nebs for shortness of breath. (4) Osteoporosis Current Visit: Yes Status: Acute Assessment and Plan: Currently osteoporosis on appropriate therapy, had been on Boniva in the past. Likely contributed to the patient's fracture. Currently on Prolia. She states she had been recently started on prednisone about 5 days ago for joint pain however she states before this it is been an extended period of time since she has taken prednisone and is not on chronic steroids. (5) Hypothyroidism Current Visit: Yes Status: Acute (6) Sjogrens syndrome Current Visit: Yes Status: Acute (7) Rheumatoid arthritis Current Visit: Yes Status: Acute DVT Prophylaxis: Heparin 5000 units subcutaneous twice a day. - Time Spent with Patient Total time spent is greater than 50% in coordination of care (as documented) at patient's floor/unit and/or counseling patient: Internal Medicine: Result - Labs CBC & Chem 7: 01/25/18 05:49 01/25/18 05:49 Labs: Short CBC 01/24/18 01/25/18 Range/Units 17:04 05:49 WBC 11.2 H 6.2 (4.3-11.1) K/mcL Hgb 11.2 L 11.3 L (11.5-15.4) g/dL Hct 33.5 L 34.3 L (35.3-44.9) % Plt Count 242 232 (140-400) K/mcL Neutrophils # 9.3 H 5.2 (1.6-8.9) K/mcL BMP 01/24/18 01/25/18 17:04 05:49 Sodium 136 135 L Potassium 3.5 3.9 Chloride 107 105 Carbon Dioxide 24 23 BUN 7 L 8 Creatinine 0.44 L 0.42 L Glucose 118 H 120 H Calcium 8.7 8.2 L - ABG Interpretation ABG results: PT/INR, D-dimer PT 12.7 Seconds (9.4-12.1) H 01/24/18 17:04 - Impressions Impressions Hip/Pelvis X-Ray 01/24/18 15:31 IMPRESSION: Acute nondisplaced fracture of the right femoral neck. Consider further characterization with a follow-up cross-sectional imaging study. D/ / Kai Shaver MD / Kai Shaver MD Interpreting Provider: aKi Shaver MD Hip CT 01/24/18 17:31 IMPRESSION: Garden 2 fracture of right femoral neck. Generalized osteopenia. D/ / Kanika Meier MD / Kanika Meier MD Interpreting Provider: Kanika Meier MD - VTE Documentation of Mechanical Device: Intermittent pneumatic compression device Consult Discharge Plan - Plan Referrals: Fabien Franco MD [Primary Care Provider] - <Galen Reyna - Last Filed: 01/25/18 15:22> Hospitalist Progress Note - Encounter Date of Encounter: 01/25/18 - Exam Vitals: Temp Pulse Resp BP Pulse Ox 98.1 F 87 16 121/78 95 01/25/18 10:00 01/25/18 10:00 01/25/18 10:00 01/25/18 10:00 01/25/18 10:00 - Assessment and Plan (1) Sjogrens syndrome Current Visit: No Status: Chronic (2) Hypothyroidism Current Visit: No Status: Chronic (3) Rheumatoid arthritis Current Visit: No Status: Chronic (4) Fracture of femoral neck, right Current Visit: Yes Status: Acute (5) Asthma Current Visit: Yes Status: Acute (6) Fall Current Visit: Yes Status: Acute (7) DVT prophylaxis Current Visit: Yes Status: Acute (8) Osteoporosis Current Visit: Yes Status: Acute (9) Seizures Current Visit: No Status: Chronic - Time Spent with Patient Total time spent is greater than 50% in coordination of care (as documented) at patient's floor/unit and/or counseling patient: Internal Medicine: Result - Labs CBC & Chem 7: 01/25/18 05:49 01/25/18 05:49 Labs: Short CBC 01/24/18 01/25/18 Range/Units 17:04 05:49 WBC 11.2 H 6.2 (4.3-11.1) K/mcL Hgb 11.2 L 11.3 L (11.5-15.4) g/dL Hct 33.5 L 34.3 L (35.3-44.9) % Plt Count 242 232 (140-400) K/mcL Neutrophils # 9.3 H 5.2 (1.6-8.9) K/mcL BMP 01/24/18 01/25/18 17:04 05:49 Sodium 136 135 L Potassium 3.5 3.9 Chloride 107 105 Carbon Dioxide 24 23 BUN 7 L 8 Creatinine 0.44 L 0.42 L Glucose 118 H 120 H Calcium 8.7 8.2 L - ABG Interpretation ABG results: PT/INR, D-dimer PT 12.7 Seconds (9.4-12.1) H 01/24/18 17:04 - Impressions Impressions Hip/Pelvis X-Ray 01/24/18 15:31 IMPRESSION: Acute nondisplaced fracture of the right femoral neck. Consider further characterization with a follow-up cross-sectional imaging study. D/ / Kai Shaver MD / Kai Shaver MD Interpreting Provider: Kai Shaver MD Hip CT 01/24/18 17:31 IMPRESSION: Garden 2 fracture of right femoral neck. Generalized osteopenia. D/ / Kanika Meier MD / Kanika Meier MD Interpreting Provider: Kanika Meier MD - Attending Attestation The history, physical exam, and medical decision making was performed by the medical student either while I was physically present and actively involved or I personally re-performed the exam and medical decision making. I have verified the accuracy of the medical student's documentation with regards to the history, physical exam findings, and medical decision making on 01/25/18. Ms Lucas is currently admitted for acute R hip fracture with comorbidities of RA and asthma. She remains moderate to high risk at this time due to potential for worsening clinical status. Ms Lucas is resting comfortably at this time. No fever or chills. No CP. Pain is OK at this time. To go to OR later today. Exam Alert Comfortable at this time Mucus membranes dry Heart not tachycardic currently No wheeze Abd nontender H/H stable. BP 129/73 I/P 1. R hip fracture - she is scheduled for OR today. She remains moderate risk for OR. H/H and vitals stable at this time. 2. RA - oral meds continued today. Continue IV Solucortef till tomorrow 3. Asthma not in exacerbation 4. Hypothyroid Further diagnoses and plan as above. <Eduardo Flynn - Last Filed: 01/25/18 13:09> (1) Fracture of femoral neck, right Qualifiers: Encounter type: initial encounter Fracture type: closed Qualified Code(s): S72.001A - Fracture of unspecified part of neck of right femur, initial encounter for closed fracture (2) Fall Qualifiers: Encounter type: initial encounter Qualified Code(s): W19.XXXA - Unspecified fall, initial encounter (3) Asthma Qualifiers: Asthma severity: unspecified severity Asthma persistence: unspecified Asthma complication type: uncomplicated Qualified Code(s): J45.909 - Unspecified asthma, uncomplicated (4) Osteoporosis Qualifiers: Osteoporosis type: other Presence of current pathological fracture: with current pathological fracture Encounter type: initial encounter Qualified Code(s): M80.80XA - Other osteoporosis with current pathological fracture, unspecified site, initial encounter for fracture <Galen Reyna A - Last Filed: 01/25/18 15:22> (1) Sjogrens syndrome Qualifiers: Sjogren's organ involvement: unspecified organ involvement Qualified Code(s): M35.00 - Sicca syndrome, unspecified (2) Hypothyroidism Qualifiers: Hypothyroidism type: acquired Qualified Code(s): E03.9 - Hypothyroidism, unspecified (3) Rheumatoid arthritis Qualifiers: Rheumatoid arthritis location: multiple sites Rheumatoid factor presence: with rheumatoid factor Qualified Code(s): M05.79 - Rheumatoid arthritis with rheumatoid factor of multiple sites without organ or systems involvement (4) Fracture of femoral neck, right Qualifiers: Encounter type: subsequent encounter Fracture type: closed Fracture healing: with routine healing Qualified Code(s): S72.001D - Fracture of unspecified part of neck of right femur, subsequent encounter for closed fracture with routine healing (5) Asthma Qualifiers: Asthma severity: unspecified severity Asthma persistence: unspecified Asthma complication type: uncomplicated Qualified Code(s): J45.909 - Unspecified asthma, uncomplicated (6) Fall Qualifiers: Encounter type: initial encounter Qualified Code(s): W19.XXXA - Unspecified fall, initial encounter (8) Osteoporosis Qualifiers: Osteoporosis type: other Presence of current pathological fracture: with cu rrent pathological fracture Encounter type: subsequent encounter Fracture healing: with routine healing Qualified Code(s): M80.80XD - Other osteoporosis with current pathological fracture, unspecified site, subsequent encounter for fracture with routine healing
[2018-01-25] MEDS ORDERED: Folic Acid 1 MG TABLET PO SCH (09:00)
--- NOTE | 2018-01-25 12:32 | Orthopedic Consult Note ---
Date of Encounter: 01/25/18 Time of Encounter: 12:29 Assessment and Plan (1) Fracture of femoral neck, right Current Visit: Yes Status: Acute After discussing the pros and cons of treatment options, to enable early ambulation and pain control, the patient has elected to proceed with right hip percutaneous pinning at this time. The risks and benefits of the procedure were fully explained in detail, including but not limited to the risk of infection, n eurovascular injury, continued pain or stiffness, failure of surgery, reinjury, or need for additional surgery, DVT, PE, general risks of anesthesia and loss of limb or life. No guarantees were given or implied and all questions were answered. The patient understands all the risks and does wish to proceed with written consent. Plan for OR today. NPO. Qualifiers: Encounter type: initial encounter Fracture type: closed Qualified Code(s): S72.001A - Fracture of unspecified part of neck of right femur, initial encounter for closed fracture History of Present Illness HPI: Ms. Lucas is a 67 year old female with history of rheumatoid arthritis, asthma, osteoporosis admitted with right hip pain after a mechanical fall. She tripped while helping a friend and landed on the right hip. She presented to the ED and was diagnosed with a right nondisplaced femoral neck fracture. She was then admitted for definitive management. Currently has right hip and groin pain. No pain in other extremities. Denies prodromal symptoms prior to fall. She denies any dizziness, lightheadedness, loss of consciousness. Past Med Surg Social Fam HX - Past Medical History Medical history: aortic aneurysm, seizures Additional medical history: seizures disorder years since last one, Psychiatric history: no psych history - Past Surgical History Surgical History: appendectomy, breast surgery, hysterectomy - Social History Smoking Status: Never smoker Smokeless Tobacco Status: No Alcohol use: none Drug use: none - Family History Mother Adopted: No Living Status: Age at : 80 Cause of : she fell and broke her femur, cardiac arrest Hx Family Cardiac Disorders: Yes Hx Family Respiratory Disorders: No Hx Family Cancer: No Hx Family GI Disorders: No Hx Family Genitourinary Disorders: No Hx Family Endocrine Disorder: No Hx Family Musculoskeletal Disorders: Yes Hx Family Neuromuscular Disorders: No Hx Family Neurologic Disorders: Yes (dementia) Hx Family HEENT Disorders: No Hx Family Autoimmune Disorders: No Hx Family Reproductive Disorders: No Hx Family Psychosocial Disorders: No Hx Family Medical Disorders: No Medications and Allergies Hydroxychloroquine [Plaquenuil] 300 mg PO DAILY 04/20/16 [History] Oxygen 2 l NS HS 04/20/16 [History] Theophylline Anhydrous [Theodur] 300 mg PO BID 04/20/16 [History] Albuterol Neb [Proventil Neb] 2.5 mg IH TID PRN 08/04/16 [History] Albuterol Sulfate [Ventolin Hfa] 2 puff IH Q4H PRN 08/04/16 [History] Aspirin [Lo-Dose Aspirin EC] 81 mg PO QPM 08/04/16 [History] Diclofenac Sodium [Voltaren] 1 appl TP QID PRN 08/04/16 [History] Ergocalciferol (VITAMIN D2) [Vitamin D2] 50,000 unit PO MO 08/04/16 [History] Gabapentin [Neurontin] 800 mg PO BID 08/04/16 [History] LevETIRAcetam [Keppra] 1,000 mg PO BID 08/04/16 [History] Levothyroxine [Synthroid] 75 mcg PO 0630 08/04/16 [History] Mometasone/Formoterol [Dulera 100 Mcg/5 Mcg Inhaler] 2 puff IH BID 08/04/16 [History] Pantoprazole Sodium [Protonix] 40 mg PO DAILY 08/04/16 [History] Pravastatin Sodium 10 mg PO DAILY 08/04/16 [History] Primidone [Mysoline] 250 mg PO Q8HR 08/04/16 [History] Sertraline [Zoloft] 100 mg PO DAILY 08/04/16 [History] Tiotropium [Spiriva] 2 puff IH DAILY 08/04/16 [History] Zafirlukast [Accolate] 20 mg PO BID 08/04/16 [History] Acetaminophen [Tylenol] 650 mg PO Q6HR PRN #0 tablet 08/08/16 [Rx] Folic Acid 1 mg PO QAM 01/24/18 [History] Methotrexate [Otrexup] 15 mg PO WE 01/24/18 [History] Allergy/AdvReac Type Severity Reaction Status Date / Time clarithromycin AdvReac Muscle Pain Verified 11/21/17 19:16 codeine AdvReac Muscle Pain Verified 11/21/17 19:16 Penicillins [PCN] AdvReac Hives Verified 11/21/17 19:16 pregabalin AdvReac Muscle Pain Verified 11/21/17 19:16 Sulfa (Sulfonamide AdvReac Nausea Verified 11/21/17 19:16 Antibiotics) sulfamethoxazole AdvReac Nausea Verified 11/21/17 19:16 [From Bactrim] trimethoprim [From Bactrim] AdvReac Nausea Verified 11/21/17 19:16 All Systems Reviewed: The remainder of the systems were reviewed and are negative except as noted in the HPI Physical Exam - Constitutional Vitals: Temp Pulse Resp BP Pulse Ox 98.1 F 87 16 121/78 95 01/25/18 10:00 01/25/18 10:00 01/25/18 10:00 01/25/18 10:00 01/25/18 10:00 Exam: Consult Exam: Constitutional -Vitals reviewed -The patient is well developed and well nourished. -Mood is pleasant. -The patient is well groomed. Psychiatric -The patient is fully alert and oriented x 3. Respiratory: -Respiratory effort normal Abdomen: -Soft abdomen -Non tender -Non distended: Left upper extremity: -No deformities. The overlying skin is intact. No obvious signs of acute trauma. -No tenderness to palpation throughout. -No significant pain with passive motion of the shoulder, elbow, wrist, and fingers within the limits of the bed. -Able to make an "OK" sign, cross the index and long fingers, and extend the thumb. -Sensation grossly intact to light touch throughout the median, radial, and ulnar distributions. -Radial pulse is present; Fingers have good capillary refill. Right upper extremity: -No deformities. The overlying skin is intact. No obvious signs of acute trauma. -No tenderness to palpation throughout. -No significant pain with passive motion of the shoulder, elbow, wrist, and fingers within the limits of the bed. -Able to make an "OK" sign, cross the index and long fingers, and extend the thumb. -Sensation grossly intact to light touch throughout the median, radial, and ulnar distributions. -Radial pulse is present; Fingers have good capillary refill. Left lower extremity: -No deformities. The overlying skin is intact. No obvious signs of acute trauma. -No tenderness to palpation throughout. -No pain with passive motion of the hip, knee, ankle, and toes within the limits of the bed. -No pain with axial loading of the thigh. -Able to dorsiflex and plantarflex the ankle and toes. -Sensation is grossly intact to light touch throughout the sural, saphenous, superficial peroneal, and deep peroneal distributions. -Toes have good capillary refill. Right lower extremity: -No deformity. The overlying skin is intact. -There is tenderness in the proximal lateral thigh. -I did not range the hip due to the known fracture. -No tenderness along the distal thigh, leg, ankle, foot, or toes. -Able to dorsiflex and plantarflex the ankle and toes. -Sensation is grossly intact to light touch throughout the sural, saphenous, superficial peroneal, and deep peroneal distributions. -Toes have good capillary refill. Results - Labs Result Diagrams: 01/25/18 05:49 01/25/18 05:49 Labs: Abnormal lab results RBC 3.77 M/mcL (3.82-4.97) L 01/25/18 05:49 Hgb 11.3 g/dL (11.5-15.4) L 01/25/18 05:49 Hct 34.3 % (35.3-44.9) L 01/25/18 05:49 Lymphocytes # 0.4 K/mcL (0.6-4.6) L 01/25/18 05:49 PT 12.7 Seconds (9.4-12.1) H 01/24/18 17:04 Sodium 135 mEq/L (136-145) L 01/25/18 05:49 Creatinine 0.42 mg/dL (0.60-1.20) L 01/25/18 05:49 Glucose 120 mg/dL (70-105) H 01/25/18 05:49 Calcium 8.2 mg/dL (8.6-10.3) L 01/25/18 05:49 H & H 01/24/18 01/25/18 Range/Units 17:04 05:49 Hgb 11.2 L 11.3 L (11.5-15.4) g/dL Hct 33.5 L 34.3 L (35.3-44.9) % All other labs normal. - Diagnostic results Hip x-ray: report reviewed, image reviewed (Nondisplaced right femoral neck fracture) Consult Discharge Plan - Plan Referrals: Fabien Franco MD [Primary Care Provider] -
--- NOTE | 2018-01-25 15:17 | Anesthesia Evaluation PreOp ---
<Concha Zafar - Last Filed: 01/25/18 15:15> Date of Encounter: 01/25/18 Time of Encounter: 15:15 - Past History Planned Operation: R hip perc pinning Cardiac History: Other (4.3cm thoracic aneurysm) Pulmonary History: Asthma, COPD (oxygen dependent), HAO Dx [employer]ER History: Seizures (none in years) Other Medical History: Thyroid (hypo), Other (sjogren's) Anesthesia History: No Prior Anesthetic Complications, Past Anesthesia (EL, appy, oophorectomy, colectomy) Alcohol Use: none Drug use: none Medications and Allergies Hydroxychloroquine [Plaquenuil] 300 mg PO DAILY 04/20/16 [History] Oxygen 2 l NS HS 04/20/16 [History] Theophylline Anhydrous [Theodur] 300 mg PO BID 04/20/16 [History] Albuterol Neb [Proventil Neb] 2.5 mg IH TID PRN 08/04/16 [History] Albuterol Sulfate [Ventolin Hfa] 2 puff IH Q4H PRN 08/04/16 [History] Aspirin [Lo-Dose Aspirin EC] 81 mg PO QPM 08/04/16 [History] Diclofenac Sodium [Voltaren] 1 appl TP QID PRN 08/04/16 [History] Ergocalciferol (VITAMIN D2) [Vitamin D2] 50,000 unit PO MO 08/04/16 [History] Gabapentin [Neurontin] 800 mg PO BID 08/04/16 [History] LevETIRAcetam [Keppra] 1,000 mg PO BID 08/04/16 [History] Levothyroxine [Synthroid] 75 mcg PO 0630 08/04/16 [History] Mometasone/Formoterol [Dulera 100 Mcg/5 Mcg Inhaler] 2 puff IH BID 08/04/16 [History] Pantoprazole Sodium [Protonix] 40 mg PO DAILY 08/04/16 [History] Pravastatin Sodium 10 mg PO DAILY 08/04/16 [History] Primidone [Mysoline] 250 mg PO Q8HR 08/04/16 [History] Sertraline [Zoloft] 100 mg PO DAILY 08/04/16 [History] Tiotropium [Spiriva] 2 puff IH DAILY 06/29/17 [History] Zafirlukast [Accolate] 20 mg PO BID 08/04/16 [History] Acetaminophen [Tylenol] 650 mg PO Q6HR PRN #0 tablet 08/08/16 [Rx] Folic Acid 1 mg PO QAM 01/24/18 [History] Methotrexate [Otrexup] 15 mg PO WE 01/24/18 [History] Allergy/AdvReac Type Severity Reaction Status Date / Time clarithromycin AdvReac Muscle Pain Verified 11/21/17 19:16 codeine AdvReac Muscle Pain Verified 11/21/17 19:16 Penicillins [PCN] AdvReac Hives Verified 11/21/17 19:16 pregabalin AdvReac Muscle Pain Verified 11/21/17 19:16 Sulfa (Sulfonamide AdvReac Nausea Verified 11/21/17 19:16 Antibiotics) sulfamethoxazole AdvReac Nausea Verified 11/21/17 19:16 [From Bactrim] trimethoprim [From Bactrim] AdvReac Nausea Verified 11/21/17 19:16 - Meds/Allergy Pre-op Review Medications Reviewed: Yes Allergies Reviewed: Yes Beta Blockers on Current Med List: No Anesthesia Results - Labs 01/25/18 05:49 01/25/18 05:49 Anesthesia Exam Vital Signs/O2 Sat, Most Current Temp Pulse Resp BP Pulse Ox 98.1 F 87 16 121/78 95 01/25/18 10:00 01/25/18 10:00 01/25/18 10:00 01/25/18 10:00 01/25/18 10:00 Weight: 92kg NPO (# of Hours): >8 - HEENT Pupil (Motor): Pupils equal, EOMI Mallampati: II Teeth: Missing Oral Opening: Greater than 3 - [employer] LOC: Oriented [employer] Motor: Normal RUE, Normal LUE, Normal RLE, Normal LLE, Normal Face [employer] Sensory: Normal: RUE, LUE, RLE, LLE, Face - Cardiac Rhythm: Regular - Pulmonary Breath Sounds: bilateral Clear Respiratory Effort: Symmetrical Anesthesia Assess/Plan ASA Score: 3 Level of consciousness: Cooperative Monitoring Plan: Standard Monitors Recovery Plan: PACU <Kvng Banegas - Last Filed: 01/25/18 19:23> Date of Encounter: 01/25/18 - Past History : No Anesthesia Results - Labs 01/25/18 05:49 01/25/18 05:49 Anesthesia Exam Pain Scale: 0 Pain Scale Used: Numeric (1 - 10) - [employer]BE [employer]ER [employer] Motor: Normal RUE, Normal LUE, Normal RLE, Normal LLE, Normal Face [employer] Sensory: Normal: RUE, LUE, RLE, LLE, Face - Cardiac Murmur: None JVD: No Carotid Bruit: No - Pulmonary Breath Sounds: bilateral Clear Anesthesia Assess/Plan Anesthetic Plan: General
[2018-01-25] MEDS ORDERED: Aspirin Enteric Coated 81 MG Tablet PO SCH (18:00)
[2018-01-25] MEDS ORDERED: *HR* Succinylcholine 200 MG/10 ML VIAL IVP ONE (19:27)
[2018-01-25] MEDS ORDERED: Ondansetron 4 MG/2 ML VIAL ONE (19:27)
[2018-01-25] MEDS ORDERED: Lidocaine -MPF 2% 2 ML VIAL ONE (19:27)
[2018-01-25] MEDS ORDERED: Dexamethasone 4 MG/ML VIAL ONE (19:27)
[2018-01-25] MEDS ORDERED: *HR* OxyCODONE/APAP 5/325 TABLET PO PRN (19:28)
[2018-01-25] MEDS ORDERED: *HR* Propofol 200 MG/20 ML VIAL IVP ONE (19:28)
[2018-01-25] MEDS ORDERED: *HR* Promethazine 25 MG/ML VIAL IVP PRN (19:28)
[2018-01-25] MEDS ORDERED: *HR* FentaNYL (PF) 100 MCG/2 ML VIAL ONE (19:28)
[2018-01-25] MEDS ORDERED: Ondansetron 4 MG/2 ML VIAL IVP ONE (19:28)
[2018-01-25] MEDS ORDERED: *HR* Labetalol 20 MG/4 ML SYRINGE IVP PRN (19:28)
[2018-01-25] MEDS ORDERED: Albuterol 2.5 MG/3 ML NEBULIZER IH ONE (19:28)
[2018-01-25] MEDS ORDERED: *HR* PHENYLEPHRINE 1,000 MCG/10 ML SYRINGE IVP ONE (19:50)
[2018-01-25] MEDS ORDERED: EPHEDrine 50 MG/ML VIAL ONE (19:52)
[2018-01-25] MEDS: *HR* HYDROmorphone (PF) 1 MG/ML SYRINGE IVP PRN ×2 (20:38→20:53)
--- NOTE | 2018-01-25 21:22 | Anesthesia Evaluation Post Op ---
Date of Encounter: 01/25/18 Time of Encounter: 09:18 - Vital Signs Vital Signs: Vital Signs/O2 Sat, Most Current Temp Pulse Resp BP Pulse Ox 98.6 F 96 14 119/58 98 01/25/18 21:00 01/25/18 21:10 01/25/18 21:10 01/25/18 21:10 01/25/18 21:10 - Lungs Lungs: Clear Ascult./Percussion - Airway Airway: Non-obstructed - Cardiovascular Regular Rate, Baseline Rhythm - Mental Status Mental Status: Alert & Oriented, Answers Appropriately - Pain Pain Scale: 0 Pain Scale used: Numeric (1 - 10) - Nausea Vomiting Nausea Vomiting: Not Present - Hydration Hydration: Tolerates oral liquids, Ice chips, Able to void - Discharge PostOp Status: Transfer Patient to floor
[2018-01-26] MEDS: Ketorolac 30 MG/ML VIAL IVP PRN (02:06)
[2018-01-26 05:47] LABS: Basophils % 0.1 %; Hematocrit 32.4 % (35.3-44.9); Hemoglobin 10.6 g/dL (11.5-15.4); Immature Granulocytes % 0.3 % (0-4); Lymphocytes # 0.6 K/mcL (0.6-4.6); Lymphocytes % 7.5 %; Mean Corpuscular HGB Conc 32.7 g/dL (31.6-35.5); Mean Corpuscular Hemoglobin 30.2 pg (28.0-33.3); Mean Corpuscular Volume 92.3 fL (83.0-100.0); Mean Platelet Volume 10.1 fL (9.4-12.4); Monocytes # 0.5 K/mcL (0.0-1.3); Monocytes % 7.2 %; Neutrophils # 6.3 K/mcL (1.6-8.9); Platelet Count 189 K/mcL (140-400); Red Blood Count 3.51 M/mcL (3.82-4.97); Red Cell Distribution Width 13.9 % (11.5-14.5); Segmented Neutrophils % 84.9 %
[2018-01-26 06:03] LABS: BUN/Creatinine Ratio 33 (6-26); Blood Urea Nitrogen 12 mg/dL (8-23); Calcium 7.7 mg/dL (8.6-10.3); Carbon Dioxide 25 mEq/L (23-29); Chloride 104 mEq/L (98-107); Glucose 133 mg/dL (70-105); Magnesium 2.2 mg/dL (1.6-2.6); Osmolality,Calculated 282 (280-300); Potassium 3.9 mEq/L (3.5-5.1); Sodium 135 mEq/L (136-145); eGFR For Non-African Americans > 60 (> 60)
[2018-01-26] MEDS: *HR* Heparin 5,000 UNIT/ML VIAL SQ SCH ×2 (06:34→17:00)
[2018-01-26] MEDS ORDERED: OXYCODONE Oral CONC 10 MG/0.5 ML ORAL.SYG SL PRN (07:06)
[2018-01-26] MEDS ORDERED: Albuterol 2.5 MG/3 ML NEBULIZER IH ONE (07:06)
[2018-01-26] MEDS ORDERED: Ketorolac 30 MG/ML VIAL IVP PRN (07:06)
[2018-01-26] MEDS ORDERED: Naloxone 0.4 MG/ML INJ IVP PRN (07:06)
[2018-01-26] MEDS ORDERED: Ondansetron 4 MG/2 ML VIAL IVP PRN (07:06)
[2018-01-26] MEDS ORDERED: Ipratropium/Albuterol Neb 3 ML IH PRN (07:06)
--- NOTE | 2018-01-26 07:34 | Orthopedic Operative Note ---
Date of procedure: 01/25/18 Procedure: Procedure: Right hip percutaneous pinning Preoperative Diagnosis: Right hip incomplete femoral neck fracture Postoperative Diagnosis: Same Surgeon: Kobe Jade MD Anesthesia: General EBL: 20 cc Complications: None Components used: Synthes 7.3 mm partially threaded cannulated screws INDICATIONS: This is a 67 yo F who had a mechanical fall yesterday and injured her right hip. She had pain in the hip so she presented to the ED and was diagnosed with a nondisplaced fracture of the right femoral neck. Surgical fixation was recommended to allow for early mobilization and pain control. After discussing the procedure at length, the patient elected for operative management with a percutaneous pinning of the right hip. The risks and benefits of the procedure were fully explained. Those risks include but are not limited to, infection, neurovascular injury, continued pain, arthritis, stiffness, nonunion, AVN, further injury, need for further surgery, DVT, PE, loss of limb, and loss of life. The patient understood all of these risks and wished to proceed. Informed consent was obtained. No guarantees were stated or implied. OPERATIVE REPORT: The patient was identified in the holding area. The right lower extremity was marked, the patient was taken to the operating room and general anesthetic was administered on the hospital bed. The patients head, neck and airway were protected by anesthesia through the case. The patient was then transferred to the fracture table and placed in the supine position with a well padded perineal post. All bony prominences were well padded. The right leg was attached to the traction device on the fracture bed. The left leg was then placed in a well leg [place] and positioned out of the way of fluoroscopy. We then obtained fluoroscopic images in AP and lateral planes confirming fracture reduction and alignment. The right lower extremity was then prepped and draped in the normal manner. Preoperative antibiotics were given prior to incision. A surgical time out protocol was then performed. We percutaneously placed a guidepin centrally and slightly inferior across the femoral neck up to the head, ensuring no penetration of the femoral head. We then made a 3 cm incision proximally from the guidepin, and placed 2 more guidepins, proximal and anterior and posterior to the first pin. Placement of the guidepins were confirmed on AP and lateral fluoroscopy. We then measured the appropriate screw lengths, and drilled and placed 3 7.3 mm cannulated screws across the fracture site in an inverted triangle pattern. At this point we obtained final fluoroscopic images of the right hip in both AP and lateral planes. We then thoroughly irrigated the wound and closed the subcutaneous tissues with 2-0 stratafix. Skin was closed with 3-0 stratafix. We then placed sterile dressings the patient was awoken by anesthesia and transferred to PACU in stable condition. Patient tolerated the procedure well and there were no complications. Postop plan: The patient will be weight bearing as tolerated postoperatively. Was there an diet assistant present: No Estimated blood loss (cc): 20
--- NOTE | 2018-01-26 07:36 | Discharge Summary ---
Outpatient Proc Discharge Plan - Plan Additional Instructions: Dr. Jade PROCEDURE PERFORMED Reduction and fixation of right hip. Incision care -Keep clear dressing in place. If dressing becomes saturated, may perform daily dressing changes to the right hip with dry gauze and either paper tape or medipore tape. -Avoid soaking wound in water (no hot tubs, bathtubs, swimming pools). -May shower after 5 days from surgery date. Carefully wash incision with soap and water. Gently pat it dry. Don't rub the incision, or apply creams or lotions. Sit on a shower stool when showering to keep from falling. Weight bearing status -Weightbearing as tolerated to the bilateral lower extremities. Medications -Pain medication per the discharging medical doctor -Enteric coated aspirin 325 mg by mouth twice per day for 28 days from the date of the surgery. [-Resume 50,000 units of vitamin D2 weekly and 1200 mg of calcium supplementation per day.] Other -Knee high EVAN hose 23 hours per day -Consult physical and occupational therapy for mobilization. -Up to chair with assistance at least twice per day. -Follow up with your primary care physician to discuss testing for bone mineral density. Follow-Up -Follow-up with Dr. Jade in office in 2 weeks from the surgery date for a post-operative evaluation. -Call the office at [phone] to schedule or confirm your appointment. -Follow up with your primary care physician to discuss testing for bone mineral density. Home Medications: Hydroxychloroquine [Plaquenuil] 300 mg PO DAILY 04/20/16 [History] Oxygen 2 l NS HS 04/20/16 [History] Theophylline Anhydrous [Theodur] 300 mg PO BID 04/20/16 [History] Albuterol Neb [Proventil Neb] 2.5 mg IH TID PRN 08/04/16 [History] Albuterol Sulfate [Ventolin Hfa] 2 puff IH Q4H PRN 08/04/16 [History] Aspirin [Lo-Dose Aspirin EC] 81 mg PO QPM 08/04/16 [History] Diclofenac Sodium [Voltaren] 1 appl TP QID PRN 08/04/16 [History] Ergocalciferol (VITAMIN D2) [Vitamin D2] 50,000 unit PO MO 08/04/16 [History] Gabapentin [Neurontin] 800 mg PO BID 08/04/16 [History] LevETIRAcetam [Keppra] 1,000 mg PO BID 08/04/16 [History] Levothyroxine [Synthroid] 75 mcg PO 0630 08/04/16 [History] Mometasone/Formoterol [Dulera 100 Mcg/5 Mcg Inhaler] 2 puff IH BID 08/04/16 [History] Pantoprazole Sodium [Protonix] 40 mg PO DAILY 08/04/16 [History] Pravastatin Sodium 10 mg PO DAILY 08/04/16 [History] Primidone [Mysoline] 250 mg PO Q8HR 08/04/16 [History] Sertraline [Zoloft] 100 mg PO DAILY 08/04/16 [History] Tiotropium [Spiriva] 2 puff IH DAILY 08/04/16 [History] Zafirlukast [Accolate] 20 mg PO BID 08/04/16 [History] Acetaminophen [Tylenol] 650 mg PO Q6HR PRN #0 tablet 08/08/16 [Rx] Folic Acid 1 mg PO QAM 01/24/18 [History] Methotrexate [Otrexup] 15 mg PO WE 01/24/18 [History]
[2018-01-26] MEDS: Hydrocortisone Sodium Succ 100 MG/2 ML VIAL IVP SCH ×2 (08:06→16:57)
[2018-01-26] MEDS: levETIRAcetam 250 MG TABLET PO SCH ×2 (08:07→22:28)
[2018-01-26] MEDS: Folic Acid 1 MG TABLET PO SCH (08:07)
[2018-01-26] MEDS: Gabapentin 400 MG CAPSULE PO SCH ×2 (08:08→22:28)
[2018-01-26] MEDS: Clindamycin 600 MG/50 ML 600 MG/50 ML IV.SOLN IVPB SCH ×2 (08:28→16:57)
[2018-01-26] MEDS: Budesonide/Formoterol 80/4.5 MDI IH SCH ×2 (10:08→22:41)
[2018-01-26] MEDS: OXYCODONE Oral CONC 10 MG/0.5 ML ORAL.SYG SL PRN ×3 (11:36→22:28)
--- NOTE | 2018-01-26 11:55 | Discharge Summary ---
<Annie Sibley N - Last Filed: 01/26/18 13:52> - NOTES TO OUTPATIENT PROVIDER Notes to Outpatient Provider: follow up on pain and mobility as well as patient's continued ability to ambulate without difficulty and perform ADLs. Patient will require continued monitoring for her osteoporosis. Orders not resulted at time of discharge: Pending orders 01/25/18 19:50 XR hip complete RT [XR] Routine Date of Encounter: 01/26/18 Time of Encounter: 11:51 - Discharge Diagnosis (1) Fracture of femoral neck, right Priority: Primary Status: Acute Assessment and Plan: Garden 2 fracture of right femoral neck. s/p surgical pinning. PT evaluation recommends home health PT services. Qualifiers: Encounter type: subsequent encounter Fracture type: closed Fracture healing: with routine healing Qualified Code(s): S72.001D - Fracture of unspecified part of neck of right femur, subsequent encounter for closed fracture with routine healing (2) Fall Priority: Primary Status: Acute Assessment and Plan: Mechanical fall. No prodromal or presyncopal symptoms. No LOC, did not hit head. Qualifiers: Encounter type: initial encounter Qualified Code(s): W19.XXXA - Unspecified fall, initial encounter (3) Osteoporosis Priority: Secondary Status: Acute Assessment and Plan: On prolia Qualifiers: Osteoporosis type: other Presence of current pathological fracture: with current pathological fracture Encounter type: subsequent encounter Fracture healing: with routine healing Qualified Code(s): M80.80XD - Other osteoporosis with current pathological fracture, unspecified site, subsequent encounter for fracture with routine healing (4) Seizures Priority: Secondary Status: Chronic Assessment and Plan: no active seizures. continue home antiepileptics (5) Sjogrens syndrome Priority: Secondary Status: Chronic Qualifiers: Sjogren's organ involvement: unspecified organ involvement Qualified Code(s): M35.00 - Sicca syndrome, unspecified (6) Hypothyroidism Priority: Secondary Status: Chronic Qualifiers: Hypothyroidism type: acquired Qualified Code(s): E03.9 - Hypothyroidism, unspecified (7) Rheumatoid arthritis Priority: Secondary Status: Chronic Qualifiers: Rheumatoid arthritis location: multiple sites Rheumatoid factor presence: with rheumatoid factor Qualified Code(s): M05.79 - Rheumatoid arthritis with rheumatoid factor of multiple sites without organ or systems involvement (8) Asthma Priority: Secondary Status: Acute Qualifiers: Asthma severity: unspecified severity Asthma persistence: unspecified Asthma complication type: uncomplicated Qualified Code(s): J45.909 - Unspecified asthma, uncomplicated Hospital course: Ms. Lucas is a 67 year old female with a history of rheumatoid arthritis, asthma, and osteoporosis who presented to the ED on 01/24 with right hip pain after a fall. She complained of persistent right hip pain that was in the lateral aspect radiating to the posterior aspect of her hip and down her leg. She denied any change in sensation in her lower leg, dizziness, lightheadedness, loss of consciousness prior to or after her fall. She states she did not hit her head. Hip/Pelvis X-Ray showed on 01/24 acute nondisplaced fracture of the right femoral neck. Hip CT on 01/24 showed aGarden 2 fracture of right femoral neck and generalized osteopenia. Orthopedic surgery was consulted on 01/25, performed an evaluation and recommended right hip percutaneous pinning.Pinning of right hip was performed on 01/25, no complications during procedure. On 01/26 patient was evaluated and reported a 1/10 pain scale rating of her right hip, doing well post-operative day 1. Hemodynamically stable. No signs of infection.Pain is well controlled with current medication regimen. PT evaluation recommended that thepatient is safe to return home at this time as she has very good family support to assist as needed recommending PT to assist with return to [facility]. Patient is stable at discharge. - Time Spent with Patient Total time spent providing and/or coordinating discharge services: - Discharge Medications Home Medications: Hydroxychloroquine [Plaquenuil] 300 mg PO DAILY 04/20/16 [History] Oxygen 2 l NS HS 04/20/16 [History] Theophylline Anhydrous [Theodur] 300 mg PO BID 04/20/16 [History] Albuterol Neb [Proventil Neb] 2.5 mg IH TID PRN 08/04/16 [History] Albuterol Sulfate [Ventolin Hfa] 2 puff IH Q4H PRN 08/04/16 [History] Aspirin [Lo-Dose Aspirin EC] 81 mg PO QPM 08/04/16 [History] Diclofenac Sodium [Voltaren] 1 appl TP QID PRN 08/04/16 [History] Ergocalciferol (VITAMIN D2) [Vitamin D2] 50,000 unit PO MO 08/04/16 [History] Gabapentin [Neurontin] 800 mg PO BID 08/04/16 [History] LevETIRAcetam [Keppra] 1,000 mg PO BID 08/04/16 [History] Levothyroxine [Synthroid] 75 mcg PO 0630 08/04/16 [History] Mometasone/Formoterol [Dulera 100 Mcg/5 Mcg Inhaler] 2 puff IH BID 08/04/16 [History] Pantoprazole Sodium [Protonix] 40 mg PO DAILY 08/04/16 [History] Pravastatin Sodium 10 mg PO DAILY 08/04/16 [History] Primidone [Mysoline] 250 mg PO Q8HR 08/04/16 [History] Sertraline [Zoloft] 100 mg PO DAILY 08/04/16 [History] Tiotropium [Spiriva] 2 puff IH DAILY 08/04/16 [History] Zafirlukast [Accolate] 20 mg PO BID 08/04/16 [History] Acetaminophen [Tylenol] 650 mg PO Q6HR PRN #0 tablet 08/08/16 [Rx] Folic Acid 1 mg PO QAM 01/24/18 [History] Methotrexate [Otrexup] 15 mg PO WE 01/24/18 [History] Allergies/Adverse Reactions: Allergy/AdvReac Type Severity Reaction Status Date / Time clarithromycin AdvReac Muscle Pain Verified 11/21/17 19:16 codeine AdvReac Muscle Pain Verified 11/21/17 19:16 Penicillins [PCN] AdvReac Hives Verified 11/21/17 19:16 pregabalin AdvReac Muscle Pain Verified 11/21/17 19:16 Sulfa (Sulfonamide AdvReac Nausea Verified 11/21/17 19:16 Antibiotics) sulfamethoxazole AdvReac Nausea Verified 11/21/17 19:16 [From Bactrim] trimethoprim [From Bactrim] AdvReac Nausea Verified 11/21/17 19:16 Date of admission: 01/24/18 17:56 Primary care physician: Fabien Franco MD Consults: 01/26/18 07:06 Consult to Occupational Therapy [CONS] Routine Comment: Evaluate, develop and implement POC Reason for Consult: post hip surgery Does patient have active BEDREST order?: No Is patient medically & hemodynamically stable?: Yes Consult to Orthopedic Navigator [CONS] [CONS] Routine Consult to Physical Therapy [CONS] Routine Comment: Evaluate, develop and implement POC Reason for Consult: post hip surgery Does patient have active BEDREST order?: No Is patient medically & hemodynamically stable?: Yes Consult to Diesel Pile Hammer Operator [CONS] Routine Reason for SW Consult: post -op hip fracture RT Post Op Consult [CONS] Routine Discharging clinician: Annie Sibley Anticipated date of discharge: 01/26/18 - Constitutional Vitals: Temp Pulse Resp BP Pulse Ox 98.2 F 76 18 118/68 98 01/26/18 07:28 01/26/18 07:28 01/26/18 10:10 01/26/18 07:28 01/26/18 10:10 General appearance: Present: A&O X 3, pleasant, no acute distress Exam: Constitutional: pleasant, no acute distres HEad: atruamtic normocephalic Chest: normal to inspection, symmetrical chest wall rise Respiratory: clear to auscultation bilaterally Abdomen: normal to inspection, normal bowel sounds, soft, nontender Extremities: Right hip post surgical changes, mild edema, but without erythema or significant tenderness to palpation. RLE distal pulses are palpable and sensation intact. patient able to ambulate with physical therapy. Neurological: alert and oriented, no acute focal deficits Psych: normal affect and mood Skin: clean, dry, intact. No echymosis or abrasions. - Patient Status Disposition: Home Health Service Condition: Good Overall status at discharge: patient is back to baseline - Discharge Instructions Instructions: Hip Fracture (GEN) Follow Up With: Fabien Franco MD [Primary Care Provider] - Kobe Jade MD [Non-Partnered Physician] - (follow up in [address] Jade) Additional Instructions: Dr. Jade PROCEDURE PERFORMED Reduction and fixation of right hip. Incision care -Keep clear dressing in place. If dressing becomes saturated, may perform daily dressing changes to the right hip with dry gauze and either paper tape or medipore tape. -Avoid soaking wound in water (no hot tubs, bathtubs, swimming pools). -May shower after 5 days from surgery date. Carefully wash incision with soap and water. Gently pat it dry. Don't rub the incision, or apply creams or lotions. Sit on a shower stool when showering to keep from falling. Weight bearing status -Weightbearing as tolerated to the bilateral lower extremities. Medications -Pain medication per the discharging medical doctor -Enteric coated aspirin 325 mg by mouth twice per day for 28 days from the date of the surgery. [-Resume 50,000 units of vitamin D2 weekly and 1200 mg of calcium supplementation per day.] Other -Knee high EVAN hose 23 hours per day -Consult physical and occupational therapy for mobilization. -Up to chair with assistance at least twice per day. -Follow up with your primary care physician to discuss testing for bone mineral density. Follow-Up -Follow-up with Dr. Jade in office in 2 weeks from the surgery date for a post-operative evaluation. -Call the office at [phone] to schedule or confirm your appointment. -Follow up with your primary care physician to discuss testing for bone mineral density. - Diet and Activity Activity: as per physical therapy Diet: advance to your usual diet - VTE Documentation of Mechanical Device: Intermittent pneumatic compression device <Galen Reyna - Last Filed: 01/26/18 18:30> Orders not resulted at time of discharge: Pending orders 01/25/18 19:50 XR hip complete RT [XR] Routine Date of Encounter: 01/26/18 - Discharge Diagnosis (1) Seizures Status: Chronic (2) Sjogrens syndrome Status: Chronic Qualifiers: Sjogren's organ involvement: unspecified organ involvement Qualified Code(s): M35.00 - Sicca syndrome, unspecified (3) Hypothyroidism Status: Chronic Qualifiers: Hypothyroidism type: acquired Qualified Code(s): E03.9 - Hypothyroidism, unspecified (4) Rheumatoid arthritis Status: Chronic Qualifiers: Rheumatoid arthritis location: multiple sites Rheumatoid factor presence: with rheumatoid factor Qualified Code(s): M05.79 - Rheumatoid arthritis with rheumatoid factor of multiple sites without organ or systems involvement (5) Fracture of femoral neck, right Status: Acute Qualifiers: Encounter type: subsequent encounter Fracture type: closed Fracture healing: with routine healing Qualified Code(s): S72.001D - Fracture of unspecified part of neck of right femur, subsequent encounter for closed fracture with routine healing (6) Asthma Status: Acute Qualifiers: Asthma severity: unspecified severity Asthma persistence: unspecified Asthma complication type: uncomplicated Qualified Code(s): J45.909 - Unspecified asthma, uncomplicated (7) Fall Status: Acute Qualifiers: Encounter type: initial encounter Qualified Code(s): W19.XXXA - Unspecified fall, initial encounter (8) Osteoporosis Status: Acute Qualifiers: Osteoporosis type: other Presence of current pathological fracture: with current pathological fracture Encounter type: subsequent encounter Fracture healing: with routine healing Qualified Code(s): M80.80XD - Other osteoporosis with current pathological fracture, unspecified site, subsequent encounter for fracture with routine healing Hospital course: Ms. Lucas is a 67 year old female - Time Spent with Patient Total time spent providing and/or coordinating discharge services: 37min Date of admission: 01/24/18 17:56 Primary care physician: Fabien Franco MD Consults: 01/26/18 07:06 Consult to Occupational Therapy [CONS] Routine Comment: Evaluate, develop and implement POC Reason for Consult: post hip surgery Does patient have active BEDREST order?: No Is patient medically & hemodynamically stable?: Yes Consult to Orthopedic Navigator [CONS] [CONS] Routine Consult to Physical Therapy [CONS] Routine Comment: Evaluate, develop and implement POC Reason for Consult: post hip surgery Does patient have active BEDREST order?: No Is patient medically & hemodynamically stable?: Yes Consult to Diesel Pile Hammer Operator [CONS] Routine Reason for SW Consult: post -op hip fracture RT Post Op Consult [CONS] Routine - Constitutional Vitals: Temp Pulse Resp BP Pulse Ox 97.8 F 74 14 100/62 94 01/26/18 11:45 01/26/18 11:45 01/26/18 11:45 01/26/18 11:45 01/26/18 11:45 - Attending Attestation I examined this patient and my medical decision-making was reviewed with the Resident Physician on 01/26/18. I agree with the documented findings, disposition and treatment plan as described except to the extent set forth below. Ms Lucas has been admitted for acute R hip fracture. She underwent ORIF and has done well. No fever or chills. She is ready for discharge home with [facility]> Exam alert Comfortable Mucus membranes dry Heart reg No wheeze abd soft and nontender No edema Plan D/C home with [facility].
--- NOTE | 2018-01-26 12:46 | Orthopedics Progress Note ---
Date of Encounter: 01/26/18 Time of Encounter: 12:45 - Assessment and Plan (1) Fracture of femoral neck, right Current Visit: Yes Status: Acute Qualifiers: Encounter type: subsequent encounter Fracture type: closed Fracture healing: with routine healing Qualified Code(s): S72.001D - Fracture of unspecified part of neck of right femur, subsequent encounter for closed fracture with routine healing Subjective Interval history: Doing fine POD# 1 s/p L hip perc pinning. Pain well controlled. No n/t. AFVSS GEN: NAD RLE: Dress c/d/i DNVI to motor/sensory exam Continue current management WBAT RLE with PT DVT ppx per hospitalist Objective Vital signs: Vital Signs Temp Pulse Resp BP Pulse Ox 01/26/18 11:45 97.8 F 74 14 100/62 94 01/26/18 10:10 18 98 01/26/18 07:28 98.2 F 76 16 118/68 91 01/26/18 04:08 97.8 F 87 16 119/64 94 01/26/18 00:44 97.6 F 87 18 118/69 98 01/26/18 00:30 84 17 137/72 95 01/25/18 23:15 97.2 F L 83 18 129/71 98 01/25/18 22:45 95 128/70 99 01/25/18 22:11 98.1 F 92 16 125/43 98 01/25/18 21:55 97.9 F 96 16 128/70 98 01/25/18 21:40 98.4 F 75 16 128/73 99 01/25/18 21:30 99.5 F 95 14 124/77 99 01/25/18 21:20 98 14 132/70 98 01/25/18 21:10 96 14 119/58 98 01/25/18 21:00 98.6 F 103 18 138/71 99 01/25/18 20:50 103 18 140/76 99 01/25/18 20:40 108 18 144/76 96 01/25/18 20:30 97.8 F 119 20 152/85 98 01/25/18 14:00 98.4 F 84 16 126/74 96 Intake and Output 01/25/18 01/26/18 01/26/18 23:59 07:59 15:59 Intake Total 30 / 30 Output Total 20 20 400 / 400 Balance -400 / -400 Intake: Oral Output: Urine 0 / 0 Estimated Blood Loss Catheter 400 / 400 Other: Weight 58 kg 60.5 kg Patient Weight 01/26/18 23:59 Weight 60.5 kg - Labs CBC & BMP: 01/26/18 05:24 01/26/18 05:24 Labs: Abnormal lab results RBC 3.51 M/mcL (3.82-4.97) L 01/26/18 05:24 Hgb 10.6 g/dL (11.5-15.4) L 01/26/18 05:24 Hct 32.4 % (35.3-44.9) L 01/26/18 05:24 PT 12.7 Seconds (9.4-12.1) H 01/24/18 17:04 Sodium 135 mEq/L (136-145) L 01/26/18 05:24 Creatinine 0.36 mg/dL (0.60-1.20) L 01/26/18 05:24 BUN/Creatinine Ratio 33 (6-26) H 01/26/18 05:24 Glucose 133 mg/dL (70-105) H 01/26/18 05:24 Calcium 7.7 mg/dL (8.6-10.3) L 01/26/18 05:24 - VTE Documentation of Mechanical Device: Intermittent pneumatic compression device Consult Discharge Plan - Plan Additional Instructions: Dr. Jade PROCEDURE PERFORMED Reduction and fixation of right hip. Incision care -Keep clear dressing in place. If dressing becomes saturated, may perform daily dressing changes to the right hip with dry gauze and either paper tape or medipore tape. -Avoid soaking wound in water (no hot tubs, bathtubs, swimming pools). -May shower after 5 days from surgery date. Carefully wash incision with soap and water. Gently pat it dry. Don't rub the incision, or apply creams or lotions. Sit on a shower stool when showering to keep from falling. Weight bearing status -Weightbearing as tolerated to the bilateral lower extremities. Medications -Pain medication per the discharging medical doctor -Enteric coated aspirin 325 mg by mouth twice per day for 28 days from the date of the surgery. [-Resume 50,000 units of vitamin D2 weekly and 1200 mg of calcium supplementation per day.] Other -Knee high EVAN hose 23 hours per day -Consult physical and occupational therapy for mobilization. -Up to chair with assistance at least twice per day. -Follow up with your primary care physician to discuss testing for bone mineral density. Follow-Up -Follow-up with Dr. Jade in office in 2 weeks from the surgery date for a post-operative evaluation. -Call the office at [phone] to schedule or confirm your appointment. -Follow up with your primary care physician to discuss testing for bone mineral density. Referrals: Fabien Franco MD [Primary Care Provider] -
--- NOTE | 2018-01-26 13:49 | Physician Discharge Referral ---
Home Health/Hosp Referral Info Transfer to: Home Health Attending Provider: Dr. Galen Reyna DO Provider in Charge Post Discharge: PCP - Diagnosis (1) Fracture of femoral neck, right Priority: Primary Status: Acute (2) Fall Priority: Primary Status: Acute (3) Osteoporosis Priority: Secondary Status: Acute (4) Seizures Priority: Secondary Status: Chronic (5) Sjogrens syndrome Priority: Secondary Status: Chronic (6) Hypothyroidism Priority: Secondary Status: Chronic (7) Rheumatoid arthritis Priority: Secondary Status: Chronic (8) Asthma Priority: Secondary Status: Acute - Respiratory Orders Oxygen / L per min Smoking Cessation: Smoking cessation has been advised. For more information, call the [place] Tobacco Quit Line at 0-999-RYLH-NOW. - Diet/Nutrition Diet/Nutrition Orders: Regular - Services Needed Following services are medically necessary services: Physical Therapy Home Care Orders: Activity level as recommended by physical therap. Follow up with Dr. Kalie MD in 2 weeks. - Transfer Medications Home Medications: Hydroxychloroquine [Plaquenuil] 300 mg PO DAILY 04/20/16 [History] Oxygen 2 l NS HS 04/20/16 [History] Theophylline Anhydrous [Theodur] 300 mg PO BID 04/20/16 [History] Albuterol Neb [Proventil Neb] 2.5 mg IH TID PRN 08/04/16 [History] Albuterol Sulfate [Ventolin Hfa] 2 puff IH Q4H PRN 08/04/16 [History] Aspirin [Lo-Dose Aspirin EC] 81 mg PO QPM 08/04/16 [History] Diclofenac Sodium [Voltaren] 1 appl TP QID PRN 08/04/16 [History] Ergocalciferol (VITAMIN D2) [Vitamin D2] 50,000 unit PO MO 08/04/16 [History] Gabapentin [Neurontin] 800 mg PO BID 08/04/16 [History] LevETIRAcetam [Keppra] 1,000 mg PO BID 08/04/16 [History] Levothyroxine [Synthroid] [place] [address]/04/16 [History] Mometasone/Formoterol [Dulera 100 Mcg/5 Mcg Inhaler] 2 puff IH BID 08/04/16 [History] Pantoprazole Sodium [Protonix] 40 mg PO DAILY 08/04/16 [History] Pravastatin Sodium 10 mg PO DAILY 08/04/16 [History] Primidone [Mysoline] 250 mg PO Q8HR 08/04/16 [History] Sertraline [Zoloft] 100 mg PO DAILY 08/04/16 [History] Tiotropium [Spiriva] 2 puff IH DAILY 08/04/16 [History] Zafirlukast [Accolate] 20 mg PO BID 08/04/16 [History] Acetaminophen [Tylenol] 650 mg PO Q6HR PRN #0 tablet 08/08/16 [Rx] Folic Acid 1 mg PO QAM 01/24/18 [History] Methotrexate [Otrexup] 15 mg PO WE 01/24/18 [History] Allergies/Adverse Reactions: Allergy/AdvReac Type Severity Reaction Status Date / Time clarithromycin AdvReac Muscle Pain Verified 11/21/17 19:16 codeine AdvReac Muscle Pain Verified 11/21/17 19:16 Penicillins [PCN] AdvReac Hives Verified 11/21/17 19:16 pregabalin AdvReac Muscle Pain Verified 11/21/17 19:16 Sulfa (Sulfonamide AdvReac Nausea Verified 11/21/17 19:16 Antibiotics) sulfamethoxazole AdvReac Nausea Verified 11/21/17 19:16 [From Bactrim] trimethoprim [From Bactrim] AdvReac Nausea Verified 11/21/17 19:16 Certification: Further, I certify that my clinical findings support that this patient is homebound (i.e. absences from home require considerable and taxing effort and are for medical reasons or buddhism services or infrequently or short duration when for other reasons) because: Homebound Reason: Leaving home requires considerable and taxing effort due to condition Attestation: My signature below is to certify that this patient is under my care and that I, or nurse practitioner, or a physician's child center assistant working with me, has a [id number] encounter with this patient.
[2018-01-26] MEDS ORDERED: Aspirin Enteric Coated 81 MG Tablet PO SCH (18:00)
[2018-01-27] MEDS: Hydrocortisone Sodium Succ 100 MG/2 ML VIAL IVP SCH ×2 (00:36→09:34)
[2018-01-27] MEDS: *HR* Heparin 5,000 UNIT/ML VIAL SQ SCH (06:08)
--- NOTE | 2018-01-27 06:36 | Orthopedics Progress Note ---
Date of Encounter: 01/27/18 Time of Encounter: 06:35 Subjective Interval history: Patient was seen this morning doing well without complaints. Afebrile vital signs stable. Operative extremity: Neurovascularly intact Dressing clean dry and intact Calves nontender Assessment and plan: Continue with postoperative care Stable for discharge Objective Vital signs: Vital Signs Temp Pulse Resp BP Pulse Ox 01/27/18 00:58 98.7 F 75 14 107/63 98 01/26/18 22:42 15 98 01/26/18 19:26 98.4 F 80 14 106/61 96 01/26/18 16:53 98.2 F 73 12 103/61 97 01/26/18 11:45 97.8 F 74 14 100/62 94 01/26/18 10:10 18 98 01/26/18 07:28 98.2 F 76 16 118/68 91 Intake and Output 01/26/18 01/26/18 01/27/18 15:59 23:59 07:59 Intake Total 530 / 530 440 / 440 150 / 150 Output Total 900 / 900 1200 / 1200 Balance 530 / 530 -460 / -460 -1050 / -1050 Intake: IV Fluids 50 / 50 Cleocin Premix 600 MG/50 ML 600 50 / 50 mg In 50 ml @ 50 mls/hr IVPB Q8HR [facility] Rx#:[id number] Oral 480 / 480 440 / 440 150 / 150 Output: Urine 900 / 900 1200 / 1200 Other: Meal Lunch Dinner Percent of Meal Consumed 70% 80% Weight 60.5 kg 60.28 kg Patient Weight 01/27/18 23:59 Weight 60.28 kg - Labs CBC & BMP: 01/26/18 05:24 01/26/18 05:24 Labs: Abnormal lab results RBC 3.51 M/mcL (3.82-4.97) L 01/26/18 05:24 Hgb 10.6 g/dL (11.5-15.4) L 01/26/18 05:24 Hct 32.4 % (35.3-44.9) L 01/26/18 05:24 PT 12.7 Seconds (9.4-12.1) H 01/24/18 17:04 Sodium 135 mEq/L (136-145) L 01/26/18 05:24 Creatinine 0.36 mg/dL (0.60-1.20) L 01/26/18 05:24 BUN/Creatinine Ratio 33 (6-26) H 01/26/18 05:24 Glucose 133 mg/dL (70-105) H 01/26/18 05:24 Calcium 7.7 mg/dL (8.6-10.3) L 01/26/18 05:24 - VTE Documentation of Mechanical Device: Intermittent pneumatic compression device Consult Discharge Plan - Plan Instructions: Hip Fracture (GEN) Additional Instructions: Dr. Jade PROCEDURE PERFORMED Reduction and fixation of right hip. Incision care -Keep clear dressing in place. If dressing becomes saturated, may perform daily dressing changes to the right hip with dry gauze and either paper tape or medipore tape. -Avoid soaking wound in water (no hot tubs, bathtubs, swimming pools). -May shower after 5 days from surgery date. Carefully wash incision with soap and water. Gently pat it dry. Don't rub the incision, or apply creams or lotions. Sit on a shower stool when showering to keep from falling. Weight bearing status -Weightbearing as tolerated to the bilateral lower extremities. Medications -Pain medication per the discharging medical doctor -Enteric coated aspirin 325 mg by mouth twice per day for 28 days from the date of the surgery. [-Resume 50,000 units of vitamin D2 weekly and 1200 mg of calcium supplementation per day.] Other -Knee high EVAN hose 23 hours per day -Consult physical and occupational therapy for mobilization. -Up to chair with assistance at least twice per day. -Follow up with your primary care physician to discuss testing for bone mineral density. Follow-Up -Follow-up with Dr. Jade in office in 2 weeks from the surgery date for a post-operative evaluation. -Call the office at [phone] to schedule or confirm your appointment. -Follow up with your primary care physician to discuss testing for bone mineral density. Referrals: Fabien Franco MD [Primary Care Provider] - Kobe Jade MD [Non-Partnered Physician] - (follow up in [address] Jade)
[2018-01-27] MEDS: Budesonide/Formoterol 80/4.5 MDI IH SCH (08:05)
[2018-01-27 08:08] VITALS: BP 118/66
[2018-01-27] MEDS: levETIRAcetam 250 MG TABLET PO SCH (09:32)
[2018-01-27] MEDS: Folic Acid 1 MG TABLET PO SCH (09:33)
[2018-01-27] MEDS: Gabapentin 400 MG CAPSULE PO SCH (09:34)
--- NOTE | 2018-01-27 10:09 | Internal Med Progress Note ---
<Annie Sibley N - Last Filed: 01/27/18 11:36> Hospitalist Progress Note - Encounter Date of Encounter: 01/27/18 Time of Encounter: 11:30 - Subjective Interval History: Patient seen today out of bed to chair. no complaints. She was originally planned for discharge yesterday but remained in the hospital for one more night for pain management. stable to discharge home today with home health PT. For discharge summary and hospital course please refer to discharge summary submitted the previous day. - Exam Vitals: Temp Pulse Resp BP Pulse Ox 98.0 F 72 17 118/66 94 01/27/18 08:07 01/27/18 08:07 01/27/18 08:07 01/27/18 08:07 01/27/18 08:07 Exam: Constitutional: pleasant, no acute distres HEad: atruamtic normocephalic Chest: normal to inspection, symmetrical chest wall rise Respiratory: clear to auscultation bilaterally Abdomen: normal to inspection, normal bowel sounds, soft, nontender Extremities: Right hip post surgical changes, mild edema, but without erythema or significant tenderness to palpation. RLE distal pulses are palpable and sensation intact. patient able to ambulate with physical therapy. Neurological: alert and oriented, no acute focal deficits Psych: normal affect and mood Skin: clean, dry, intact. No echymosis or abrasions. - Assessment and Plan (1) Fracture of femoral neck, right Status: Acute Assessment and Plan: [place] 2 fracture of right femoral neck. s/p surgical pinning. PT evaluation recommends home health PT services. stable to discharge per orthopedic surgery with follow up outpatient. (2) Fall Status: Acute Assessment and Plan: Mechanical fall. No prodromal or presyncopal symptoms. No LOC, did not hit head. (3) Rheumatoid arthritis Status: Chronic (4) Seizures Status: Chronic Assessment and Plan: no active seizures. continue home antiepileptics (5) Sjogrens syndrome Status: Chronic (6) Hypothyroidism Status: Chronic (7) Asthma Status: Acute Assessment and Plan: Respiratory status at baseline. When necessary duo nebs for shortness of breath. (8) Osteoporosis Status: Acute Assessment and Plan: On prolia - Time Spent with Patient Total time spent is greater than 50% in coordination of care (as documented) at patient's floor/unit and/or counseling patient: Internal Medicine: Result - Labs CBC & Chem 7: 01/26/18 05:24 01/26/18 05:24 - ABG Interpretation ABG results: PT/INR, D-dimer PT 12.7 Seconds (9.4-12.1) H 01/24/18 17:04 - VTE Documentation of Mechanical Device: Intermittent pneumatic compression device Consult Discharge Plan - Plan Instructions: Hip Fracture (GEN) Additional Instructions: Dr. Jade PROCEDURE PERFORMED Reduction and fixation of right hip. Incision care -Keep clear dressing in place. If dressing becomes saturated, may perform daily dressing changes to the right hip with dry gauze and either paper tape or medipore tape. -Avoid soaking wound in water (no hot tubs, bathtubs, swimming pools). -May shower after 5 days from surgery date. Carefully wash incision with soap and water. Gently pat it dry. Don't rub the incision, or apply creams or lotions. Sit on a shower stool when showering to keep from falling. Weight bearing status -Weightbearing as tolerated to the bilateral lower extremities. Medications -Pain medication per the discharging medical doctor -Enteric coated aspirin 325 mg by mouth twice per day for 28 days from the date of the surgery. [-Resume 50,000 units of vitamin D2 weekly and 1200 mg of calcium supplementation per day.] Other -Knee high EVAN hose 23 hours per day -Consult physical and occupational therapy for mobilization. -Up to chair with assistance at least twice per day. -Follow up with your primary care physician to discuss testing for bone mineral density. Follow-Up -Follow-up with Dr. Jade in office in 2 weeks from the surgery date for a post-operative evaluation. -Call the office at [phone] to schedule or confirm your appointment. -Follow up with your primary care physician to discuss testing for bone mineral density. Referrals: Fabien Franco MD [Primary Care Provider] - Kobe Jade MD [Non-Partnered Physician] - (follow up in [address] Jade) Prescriptions: Oxycodone HCl/Acetaminophen [Percocet 5-325 mg Tablet] 1 each PO Q6-8H PRN 2 Days #7 tablet PRN Reason: Pain <Galen Reyna - Last Filed: 01/27/18 15:52> Hospitalist Progress Note - Encounter Date of Encounter: 01/27/18 - Exam Vitals: Temp Pulse Resp BP Pulse Ox 98.0 F 72 17 118/66 94 01/27/18 08:07 01/27/18 08:07 01/27/18 08:07 01/27/18 08:07 01/27/18 08:07 - Assessment and Plan (1) Seizures Status: Chronic (2) Sjogrens syndrome Status: Chronic (3) Hypothyroidism Status: Chronic (4) Rheumatoid arthritis Status: Chronic (5) Fracture of femoral neck, right Status: Acute (6) Asthma Status: Acute (7) Fall Status: Acute (8) Osteoporosis Status: Acute - Time Spent with Patient Total time spent is greater than 50% in coordination of care (as documented) at patient's floor/unit and/or counseling patient: Internal Medicine: Result - Labs CBC & Chem 7: 01/26/18 05:24 01/26/18 05:24 - ABG Interpretation ABG results: PT/INR, D-dimer PT 12.7 Seconds (9.4-12.1) H 01/24/18 17:04 - Attending Attestation I examined this patient and my medical decision-making was reviewed with the Resident Physician on 01/27/18. I agree with the documented findings, disposition and treatment plan as described except to the extent set forth below. Ms Lucas is currently admitted for acute R hip fracture. She is s/p ORIF. She remains low to moderate risk at this time Exam alert Comfortable Mucus membranes dry Heart reg No wheeze Abd soft I/P 1. R hip fracture - doing OK. To go home today with [facility]. 2. RA Further diagnoses and plan as above. <Annie Sibley - Last Filed: 01/27/18 11:36> (1) Fracture of femoral neck, right Qualifiers: Encounter type: subsequent encounter Fracture type: closed Fracture healing: with routine healing Qualified Code(s): S72.001D - Fracture of unspecified part of neck of right femur, subsequent encounter for closed fracture with routine healing (2) Fall Qualifiers: Encounter type: initial encounter Qualified Code(s): W19.XXXA - Unspecified fall, initial encounter (3) Rheumatoid arthritis Qualifiers: Rheumatoid arthritis location: multiple sites Rheumatoid factor presence: with rheumatoid factor Qualified Code(s): M05.79 - Rheumatoid arthritis with rheumatoid factor of multiple sites without organ or systems involvement (5) Sjogrens syndrome Qualifiers: Sjogren's organ involvement: unspecified organ involvement Qualified Code(s): M35.00 - Sicca syndrome, unspecified (6) Hypothyroidism Qualifiers: Hypothyroidism type: acquired Qualified Code(s): E03.9 - Hypothyroidism, unspecified (7) Asthma Qualifiers: Asthma severity: unspecified severity Asthma persistence: unspecified Asthma complication type: uncomplicated Qualified Code(s): J45.909 - Unspecified asthma, uncomplicated (8) Osteoporosis Qualifiers: Osteoporosis type: other Presence of current pathological fracture: with current pathological fracture Encounter type: subsequent encounter Fracture healing: with routine healing Qualified Code(s): M80.80XD - Other osteoporosis with current pathological fracture, unspecified site, subsequent encounter for fracture with routine healing <Galen Reyna - Last Filed: 01/27/18 15:52> (2) Sjogrens syndrome Qualifiers: Sjogren's organ involvement: unspecified organ involvement Qualified Code(s): M35.00 - Sicca syndrome, unspecified (3) Hypothyroidism Qualifiers: Hypothyroidism type: acquired Qualified Code(s): E03.9 - Hypothyroidism, unspecified (4) Rheumatoid arthritis Qualifiers: Rheumatoid arthritis location: multiple sites Rheumatoid factor presence: with rheumatoid factor Qualified Code(s): M05.79 - Rheumatoid arthritis with rheumatoid factor of multiple sites without organ or systems involvement (5) Fracture of femoral neck, right Qualifiers: Encounter type: subsequent encounter Fracture type: closed Fracture healing: with routine healing Qualified Code(s): S72.001D - Fracture of unspecified part of neck of right femur, subsequent encounter for closed fracture with routine healing (6) Asthma Qualifiers: Asthma severity: unspecified severity Asthma persistence: unspecified Asthma complication type: uncomplicated Qualified Code(s): J45.909 - Unspecified asthma, uncomplicated (7) Fall Qualifiers: Encounter type: initial encounter Qualified Code(s): W19.XXXA - Unspecified fall, initial encounter (8) Osteoporosis Qualifiers: Osteoporosis type: other Presence of current pathological fracture: with current pathological fracture Encounter type: subsequent encounter Fracture healing: with routine healing Qualified Code(s): M80.80XD - Other osteoporosis with current pathological fracture, unspecified site, subsequent encounter for fracture with routine healing
--- NOTE | 2018-01-27 10:49 | Electrocardiograph Report ---
[address] [address] Test Date: 2018-01-24 Pat Name: Jazlyn Lucas Department: EXAM9 Room: [facility] Gender: F Facility Coordinator: : 1950 Requested By: Angel Cartwright Order Number: [id number] Reading MD: Sarai Dixon Measurements Intervals [place] Rate: 74 P: 52 NV: 140 QRS: -78 QRSD: 115 T: 76 QT: 435 QTc: 483 Interpretive Statements Sinus rhythm LAD, consider left anterior fascicular block IRBBB Borderline T abnormalities, anterior leads Electronically Signed On 01-27-2018 10:48:00 EST by Sarai Dixon
[2018-01-31] MEDS ORDERED: *HR* Methotrexate 2.5 MG TABLET PO SCH (09:00)
== END 2018-01-27 11:35 | disposition home health service (06) | DRG 481 ==
LOC: EMEROOARM 15:24 → SUATTDRO 17:56 → 3NENU 17:56
PROVIDERS: ADMIT Internal Medicine; ATTEND Internal Medicine